=== PATIENT | female | born 1985 | race Caucasian/White ===

== ENCOUNTER → 2019-10-01 16:43 | Outpatient (CLI) | payer OTHER, SELFPAY ==
--- NOTE | ~2019-10-01 | US_ITS ---
EXAMINATION: US OB >= 14 weeks Fetus DATE: 10/01/2019 17:45 INDICATION: survey TECHNIQUE: Multiple obstetric sonographic images performed. FINDINGS: Comparison ultrasound dated 07/13/2019 There is a single living fetus in vertex presentation. The placenta is anterior without placenta pre via. Placenta measures 2.2 cm to the cervix. Amniotic fluid volume is subjectively normal. cardiac activity and movement is noted with a heart rate of 146 beats per minute. The following anatomy was identified as normal: 4 chamber heart 3 vessel cord cord insertion kidneys urinary bladder stomach spine diaphragm ventricles cisterna magna cerebellum The following biometric data were obtained: BPD: 44mm corresponds to gestational age 19 weeks 1 days. Head circumference: 161 mm corresponds to gestational age 18 weeks 6 days. Abdominal circumference: 134 mm corresponds to gestational age 18 weeks 6 days. Femur length: 28 mm corresponds to gestational age 18 weeks 5 days. Head circumference to abdominal circumference ratio: 1.19 (normal range for expected gestational age is 1.09-1.26). Estimated weight: 259 grams +/- 39 grams using Hadlock method. IMPRESSION: 1: Single living intrauterine with an estimated gestational age of 18weeks 3days by initial ultrasound measurements, with an EDC of 02/29/2020 in breech presentation. 2. Normal survey. 3: Low-lying anterior placenta measuring 2.2 cm to the cervix. Reviewed, dictated and finalized at location B. ESSION: 1: Single living intrauterine with an estimated gestational age of 18 weeks 3days by initial ultrasound measurements, with an EDC of 02/29/2020 in br eech presentation. 2. Normal survey. 3: Low-lying anterior placenta measuring 2.2 cm to the cervix.
== END ==
PROVIDERS: Visit Provider Nurse Practitioner
DX: O44.42 Low lying placenta NOS or without hemorrhage, second trimester (principal); Z3A.18 18 weeks gestation of pregnancy
CPT/HCPCS: 76805

== ENCOUNTER → 2019-11-02 07:35 | Outpatient (CLI) | payer OTHER, SELFPAY ==
--- NOTE | ~2019-11-02 | US_ITS ---
EXAMINATION: US OB limited EXAM DATE: 11/02/2019 07:59 INDICATION: Low lying placenta. Second trimester. TECHNIQUE: Pelvic obstetrical transabdominal sonogram was performed by a technologist. There are mu ltiple grayscale and Doppler images available for interpretation. Comparison is made to prior examina tion from 10/01/2019. FINDINGS: Placental margin to internal cervical os distance is 5.1 cm. There is a single fetus identi fied in vertex presentation with a heart rate of 147 beats per minute. The placenta is located in the anterior position. There is no sonographic evidence of retroplacental hemorrhage identified. There is subjectively expected amount of amniotic fluid. IMPRESSION: 1. Single fetus in vertex presentation with heart rate 147 beats per minute. 2. Anteriorly located placenta. Reviewed, dictated and finalized at location A.
== END ==
PROVIDERS: PCP Nurse Practitioner Adult Health; Visit Provider Obstetrics & Gynecology Gynecology
DX: O44.10 Complete placenta previa with hemorrhage, unspecified trimester (principal); Z3A.00 Weeks of gestation of pregnancy not specified
CPT/HCPCS: 76815

== ENCOUNTER 2020-02-21 18:53 | Inpatient (IN) | payer OTHER, SELFPAY ==
[2020-02-21] VITALS (20 sets, daily range): BP systolic 102–140; BP diastolic 50–87; PULSE 82–103; TEMP 36.8–37.1; BMI 35.8
--- NOTE | 2020-02-21 18:53 | LDADM ---
This patient, Flor Nath, was admitted to Labor/Delivery/Recovery 106 on 02/21/20 at 18:53. Plans for labor, pain management and were discussed with patient. Patient/family oriented to hospital policies and general routines including ID bracelet, bed and alarms, visiting hours, pain management, procedures, bathroom and other care routines, personal items, smoking policy, room service/diet and guest tray routines, infant security routines, and visiting hours. Patient/Family are encouraged to report perceived risks to care and to ask questions if they do not understand what they are told or what they should do. See OBIX for further documentation.
[2020-02-21 19:58] LABS: Basophils Percent Auto 0.5 % (0.2-1.2); Eosinophils Absolute Auto 0.1 K/mm3 (0-0.3); Eosinophils Percent Auto 1.6 % (0-4.4); Hematocrit 38.4 % (37.0-47.0); Hemoglobin 13.2 g/dL (12.0-15.0); Immature Granulocyte Absolute 0.04 K/mm3 (0.00-0.031); Immature Granulocyte Percent A 0.5 % (0-0.5); Immature Platelet Fraction Pct 11.9 % (0.9-11.2); Lymphocytes Percent Auto 24.7 % (18.3-44.2); Mean Corpuscular HGB Conc 34.4 g/dl (32-36); Mean Corpuscular Hemoglobin 30.1 pg (26-34); Mean Corpuscular Volume 87.7 fl (80-100); Mean Platelet Volume 12.2 fl (7.4-10.4); Monocytes Absolute Auto 0.6 K/mm3 (0.1-0.6); Monocytes Percent Auto 7.3 % (2.6-8.5); Neutrophils Percent Auto 65.4 % (45.5-73.1); Platelet Count Result 193 k/mm3 (150-375); Red Blood Count 4.38 M/mm3 (4.2-5.4); Red Cell Distribution Width 13.8 % (11.5-14.5); White Blood Count 7.7 K/mm3 (4.5-10.0)
[2020-02-21] MEDS: DINOPROSTONE 10 MG VAG INSERT VAGINAL (20:02)
--- NOTE | 2020-02-21 20:41 | P.PNAN_ITS ---
Anes - Eval Pre Procedure Procedure: Labor epidural Date/Time: 02/21/20 20:41 Surgeon: Lindsay Preop Diagnosis: Abd pain with contractions Pre Op Diagnosis: Induction of Labor Patient Data Age: 34 Gender: F Height: Weight: Last Vital Signs Pulse 94 02/21/20 20:30 BP 125/73 02/21/20 20:30 Allergies Allergy/AdvReac Type Severity Reaction Status Date / Time No Known Allergies Allergy Verified 01/27/20 13:35 Home Medications Medication Instructions Recorded Confirmed Type PNV cmb#95-ferrous fumarate-FA 1 tablet PO DAILY 01/27/20 01/27/20 History [] ergocalciferol (vitamin D2) 1,250 mcg PO WEEKLY 01/27/20 01/27/20 History [Vitamin D2] levothyroxine [Synthroid] 25 mcg PO DAILY 01/27/20 01/27/20 History Laboratory Tests 02/21/20 02/21/20 19:43 19:43 WBC 7.7 K/mm3 K/mm3 (4.5-10.0) RBC 4.38 M/mm3 M/mm3 (4.2-5.4) Hgb 13.2 g/dL g/dL (12.0-15.0) Hct 38.4 % % (37.0-47.0) MCV 87.7 fl fl (80-100) MCH 30.1 pg pg (26-34) MCHC 34.4 g/dl g/dl (32-36) RDW 13.8 % % (11.5-14.5) Plt Count 193 k/mm3 k/mm3 (150-375) MPV 12.2 fl H fl (7.4-10.4) Immature Gran % (Auto) 0.5 % % (0-0.5) Neut % (Auto) 65.4 % % (45.5-73.1) Lymph % (Auto) 24.7 % % (18.3-44.2) [place] % (Auto) 7.3 % % (2.6-8.5) Eos % (Auto) 1.6 % % (0-4.4) Baso % (Auto) 0.5 % % (0.2-1.2) Lymph # (Auto) 1.90 K/mm3 K/mm3 (0.9-3.2) [place] # (Auto) 0.6 K/mm3 K/mm3 (0.1-0.6) Eos # (Auto) 0.1 K/mm3 K/mm3 (0-0.3) Baso # (Auto) 0.0 K/mm3 K/mm3 (0.0-0.1) Abs Immat Gran (auto) 0.04 K/mm3 H K/mm3 (0.00-0.031) Absolute Neuts (auto) 5.0 K/mm3 K/mm3 (1.3-6.7) Absolute Nucleated RBC 0.0 K/mm3 K/mm3 (0.0-0.012) Nucleated RBC % 0.0 % % (0.0-0.2) % Immature Plt Fraction 11.9 % H % (0.9-11.2) RPR Pending Patient hx anesthesia problems: none Family hx anesthesia problems: none PMFSH Past Medical History Medical History (Updated 02/21/20 @ 20:42 by Dereck Cheek CRNA) Hypothyroidism Family History Family History Father Diabetes mellitus Hypertension Grandparent Family history of cardiovascular disease Cancer Cerebrovascular accident Social History Social History Smoking status: Never smoker Alcohol intake: current Substance use: never Spiritual care concerns: No Exam Day of Procedure 02/21/20 20:41 Patient weight: overweight Neurological: alert and oriented
[2020-02-22] VITALS (36 sets, daily range): BP systolic 97–135; BP diastolic 46–89; PULSE 81–109; TEMP 36.8–37.7
[2020-02-22] MEDS: AMPICILLIN 2 GM/NS 100 ML 2 GM/100 ML BAG IVPB (00:23)
[2020-02-22] MEDS: LACTATED RINGERS 1,000 ML 125 ML IV CONT ×3 (00:24→17:19)
[2020-02-22] MEDS: AMPICILLIN 1 GM/NS 50 ML 1 GM/50 ML BAG IVPB ×5 (04:24→21:02)
--- NOTE | 2020-02-22 10:04 | WPDOBADMIT ---
Obstetrics - Admit Note Admission Note: record reviewed. No pertinent additions to the history and/or any subsequent changes in the physical findings that are not consistent with the expected course of the were found. Additions to the history and/or subsequent changes in the physical findings follow. Here for MIL. Cervadil last pm. Still closed but softer. Plan Pitocin. FHTs reactive.
[2020-02-22] MEDS: OXYTOCIN 30 UNITS/NS 500 ML 30 UNITS/500 ML BAG IV CONT (10:21)
[2020-02-23] VITALS (205 sets, daily range): BP systolic 88–195; BP diastolic 40–165; PULSE 62–133; RESP 18–26; TEMP 36.1–37.8; O2SAT 88–100
[2020-02-23] MEDS: AMPICILLIN 1 GM/NS 50 ML 1 GM/50 ML BAG IVPB ×4 (00:29→12:41)
[2020-02-23] MEDS: LACTATED RINGERS 1,000 ML 125 ML IV CONT ×3 (01:10→05:10)
--- NOTE | 2020-02-23 09:35 | P.PNOB_ITS ---
OB - PN: Subj Subjective Date/time seen: 02/23/20 09:35 Patient only 2.5 cm last pm so rested and ate dinner then restarted pitocin. Now last check at 7 am 7.5 cm. SROM in the night with clear fluid. RN to check p atient now. OB - PN: Obj Data Labs CBC & Chem 7: 02/21/20 19:43 OB - PN A/P Time Spent With Patient Time: Total time spent is greater than 50% in coordination of care (as documented) at patient's floor/unit and/or counseling patient:
[2020-02-23] MEDS: ACETAMINOPHEN 500 MG TABLET 1000 MG PO (15:56)
--- NOTE | 2020-02-23 16:46 | PM.IMHP ---
H&P: HPI History of Present Illness Chief complaint: Induction of Labor Narrative: Flor Nath is a 34 G1 year old female at 39 3/7 wks here for MIL. Initially closed cervix and given cervadil. Slow progress to complete and pushing. Had a 1 1/2 hour pushing effort in multiple positions and then rested and now has pushed an additional 1 1/2 hours. Minimal descent and still at -2 station. Plan to proceed with primary csection for failure to descend. uncomplicated. labs: O+; Rubella immune; RPR -; HBSAg -; HIV - PMFSH Past Medical History Medical History (Updated 02/23/20 @ 16:51 by Marlyn Montoya MD) Hypothyroidism Family History Family History Father Diabetes mellitus Hypertension Grandparent Family history of cardiovascular disease Cancer Cerebrovascular accident Social History Social History Smoking status: Never smoker Alcohol intake: current Substance use: never Spiritual care concerns: No Meds Home Medications and Allergies Home Medications Medication Instructions Recorded Confirmed Type PNV cmb#95-ferrous fumarate-FA 1 tablet PO DAILY 01/27/20 01/27/20 History [] ergocalciferol (vitamin D2) 1,250 mcg PO WEEKLY 01/27/20 01/27/20 History [Vitamin D2] levothyroxine [Synthroid] 25 mcg PO DAILY 01/27/20 01/27/20 History Allergies Allergy/AdvReac Type Severity Reaction Status Date / Time No Known Allergies Allergy Verified 01/27/20 13:35 Vital Signs Vital Signs - 24 hr 02/22/20 17:00 02/22/20 17:30 02/22/20 17:40 Temperature 98.2 F Pulse Rate 92 90 Respiratory Rate Blood Pressure 120/79 123/79 Pulse Oximetry 02/22/20 18:00 02/22/20 18:30 02/22/20 20:15 Temperature Pulse Rate 97 89 97 Respiratory Rate Blood Pressure 132/84 130/80 127/80 Pulse Oximetry 02/22/20 20:16 02/22/20 20:30 02/22/20 20:45 Temperature Pulse Rate 98 97 95 Respiratory Rate Blood Pressure 123/76 126/81 127/76 Pulse Oximetry 02/22/20 21:00 02/22/20 21:15 02/22/20 21:30 Temperature Pulse Rate 105 H 95 95 Respiratory Rate Blood Pressure 126/89 116/82 119/78 Pulse Oximetry 02/22/20 22:00 02/22/20 22:15 02/22/20 22:30 Temperature Pulse Rate 86 84 90 Respiratory Rate Blood Pressure 114/61 103/54 L 107/53 L Pulse Oximetry 02/22/20 22:36 02/22/20 22:45 02/22/20 23:01 Temperature 98.3 F Pulse Rate 86 90 Respiratory Rate Blood Pressure 97/46 L 113/67 Pulse Oximetry 02/22/20 23:45 02/23/20 00:00 02/23/20 00:15 Temperature Pulse Rate 88 91 92 Respiratory Rate Blood Pressure 122/71 120/70 117/64 Pulse Oximetry 02/23/20 00:30 02/23/20 00:31 02/23/20 00:45 Temperature 99.4 F Pulse Rate 92 96 Respiratory Rate Blood Pressure 109/65 109/63 Pulse Oximetry 02/23/20 01:00 02/23/20 01:15 02/23/20 01:45 Temperature Pulse Rate 95 85 86 Respiratory Rate Blood Pressure 111/60 115/68 112/51 L Pulse Oximetry 02/23/20 02:00 02/23/20 02:15 02/23/20 02:25 Temperature Pulse Rate 82 90 Respiratory Rate Blood Pressure 114/57 L 127/78 Pulse Oximetry 99 02/23/20 02:29 02/23/20 02:30 02/23/20 02:31 Temperature Pulse Rate 103 H 98 Respiratory Rate Blood Pressure 129/87 131/85 Pulse Oximetry 98 02/23/20 02:33 02/23/20 02:35 02/23/20 02:36 Temperature Pulse Rate 84 96 Respiratory Rate Blood Pressure 140/81 135/84 Pulse Oximetry 98 02/23/20 02:39 02/23/20 02:40 02/23/20 02:42 Temperature Pulse Rate 100 76 Respiratory Rate Blood Pressure 130/82 127/77 Pulse Oximetry 97 02/23/20 02:45 02/23/20 02:48 02/23/20 02:50 Temperature Pulse Rate 74 82 Respiratory Rate Blood Pressure 121/66 118/69 Pulse Oximetry 98 98 02/23/20 02:51 02/23/20 02:54 02/23/20 02:55 Temperature Pulse Rate 84 82 Respiratory
[2020-02-23] MEDS: KETOROLAC 30 MG/ML VIAL (*BKC) IV PUSH (17:16)
--- NOTE | 2020-02-23 17:32 | PM.OP ---
Procedure Note - Brief Procedure Note - Brief Date of procedure: 02/23/20 Pre-op diagnosis: Induction of Labor failure to descend Post-op diagnosis: same Procedure performed: primary LTCS Anesthesia: epidural Surgeon: Marlyn Montoya MD Estimated blood loss (mL): 130 Drains: Yes (nunez) Packing: No Pathology: yes (placenta) Complications: No immediate complications Condition: stable Disposition: PACU Findings: female in OP position; cord loose around body x 1; normal appearing tubes, ovaries, and uterus; 9/9; weight 8#3oz
--- NOTE | 2020-02-23 17:35 | PM.DS ---
DS: Admitting Diagnosis Admitting Diagnosis Admitting Diagnosis: 39 weeks gestation of DS: Discharge Diagnosis Discharge Diagnosis (1) Failure of descent in labor, delivered, current hospitalization: Code(s): O62.2 - Other uterine inertia Status: Acute (2) 39 weeks gestation of : Code(s): Z3A.39 - 39 weeks gestation of Status: Acute (3) delivery delivered: Code(s): O82 - Encounter for delivery without indication Status: Acute DS: Summary Hospital Course Reason for hospitalization: post op care Status at Discharge Functional status at discharge: independent ambulation Overall status at discharge: patient is progressing back to baseline Time Spent with Patient Time attestation: Total time spent providing and/or coordinating discharge services: Discharge Plan Discharge Attending physician on discharge: Marlyn Montoya Discharging Clinician: Marlyn Montoya Anticipated Discharge Date/Time: 02/26/20 17:36 Patient Disposition: Home, Self-Care Activity: may shower, may drive after 2 weeks and pelvic rest Diet: regular Patient Instructions: Antibiotic Form Stand Alone Forms: General Discharge Information Follow-up/Referrals: Marlyn Montoya MD [Physician] - 1 Week Discharge Medications: Continued PNV cmb#95-ferrous fumarate-FA [] 28 mg iron- 800 mcg Tablet 1 tablet PO DAILY RF: 0 levothyroxine [Synthroid] 25 mcg Tablet 25 mcg PO DAILY RF: 0 ergocalciferol (vitamin D2) [Vitamin D2] 1,250 mcg (50,000 unit) Capsule 1,250 mcg PO WEEKLY RF: 0 Date of admission: 02/21/20 18:53 Primary Care Provider: NhungAlla Admitting Provider: Marlyn Montoya Attending physician on admission: Marlyn Montoya Condition: Stable
--- NOTE | 2020-02-23 17:38 | PM.OBDSVD ---
DS: Admitting Diagnosis Admitting Diagnosis Admitting Diagnosis: 39 weeks gestation of DS: Discharge Diagnosis Discharge Diagnosis (1) delivery delivered: Code(s): O82 - Encounter for delivery without indication Status: Acute (2) Failure of descent in labor, delivered, current hospitalization: Code(s): O62.2 - Other uterine inertia Status: Acute (3) 39 weeks gestation of : Code(s): Z3A.39 - 39 weeks gestation of Status: Acute OB - DS: Summary OB Procedures : Ultrasound OB Procedures Intrapartum: low cervical, transverse OB Procedures: : None Peripartum Data Infant Delivery Method: Section Procedures: Procedures Operation Date: 02/23/20 17:00 <No data on this case meets the specified criteria> complications: none Status at Discharge Functional status at discharge: independent ambulation Overall status at discharge: patient is progressing back to baseline Time Spent with Patient Time attestation: Total time spent providing and/or coordinating discharge services: Discharge Plan Discharge Attending physician on discharge: Marlyn Montoya Discharging Clinician: Marlyn Montoya Anticipated Discharge Date/Time: 02/25/20 07:39 Patient Disposition: Home, Self-Care Activity: may shower, may drive after 2 weeks and pelvic rest Diet: regular Patient Instructions: Antibiotic Form Stand Alone Forms: General Discharge Information Follow-up/Referrals: Marlyn Montoya MD [Physician] - 1 Week Discharge Medications: Continued PNV cmb#95-ferrous fumarate-FA [] 28 mg iron- 800 mcg Tablet 1 tablet PO DAILY RF: 0 levothyroxine [Synthroid] 25 mcg Tablet 25 mcg PO DAILY RF: 0 ergocalciferol (vitamin D2) [Vitamin D2] 1,250 mcg (50,000 unit) Capsule 1,250 mcg PO WEEKLY RF: 0 Date of admission: 02/21/20 18:53 Primary Care Provider: Leonie*Alla Admitting Provider: Marlyn Montoya Attending physician on admission: Marlyn Montoya Condition: Stable Care Plan Goals: Plans condoms for control
[2020-02-23] MEDS: OXYTOCIN 30 UNITS/NS 500 ML 30 UNITS/500 ML BAG 125 UNITS IV CONT (19:00)
--- NOTE | 2020-02-23 20:32 | OP_ITS ---
DATE OF PROCEDURE: 02/23/2020 PREOPERATIVE DIAGNOSIS: Intrauterine at 39 weeks, failure to descend. POSTOPERATIVE DIAGNOSIS: Intrauterine at 39 weeks, failure to descend. PROCEDURE: Primary low-transverse section. ANESTHESIA: Epidural. FINDINGS: Female in the occiput-posterior position, body cord x1 is delivered through. Normal-appearing tubes, ovaries, and uterus. Apgars scores 9 and 9, weight 8 pounds 3 ounce. ESTIMATED BLOOD LOSS: 130 cc. PATHOLOGY: Placenta. DESCRIPTION OF PROCEDURE: The patient was taken to the operating room, placed under previously placed epidural anesthesia. She was prepped and draped in usual sterile fashion. Once the anesthesia was deemed adequate, she was prepped and draped. A Pfannenstiel skin incision was made with a scalpel and carried down to the underlying layer of fascia. Bleeding vessels in the subcutaneous tissue are cauterized for hemostasis. The vaginal incision was extended laterally using Lala scissors. [facility] was used to tent the fascia, which was then dissected off using sharp and blunt dissection. The rectus muscles were in the midline. The peritoneum was tented, entered with Metzenbaum, and extended laterally using blunt traction. The bladder blade was placed. The vesicouterine peritoneum is tented, entered with Metzenbaum's and extended laterally. The bladder flap was created digitally. The bladder blade was replaced. The lower uterine segment was incised in a transverse fashion with a scalpel and extended laterally using blunt traction. Membranes are already ruptured and fluid was noted to still be clear. The 's head was noted to be in the straight OP position. The was brought up into the incision and delivered while the assistant community director applied fundal pressure. The infant was fully delivered, detangled from the cord. The cord was clamped and cut. The is handed to the OB nurse. The placenta was removed using manual traction. The cord did partially avulsed during this process. The uterus was cleared of all clots and debris and exteriorized. The uterine incision was closed using 0 Monocryl in the running locked fashion. One additional [id number] suture was required on the lower uterine segment below the incision on the left, proximally 1 cm below due to a bleeding vessel. The hemostasis was then noted to be excellent at the incision and at the additional [id number] suture. The 2nd layer of imbricating stitches is placed with 0 Monocryl. The cul-de-sac was irrigated. The uterus was returned to the abdomen. The gutters were irrigated. The incision was again inspected and noted to be hemostatic. The fascia was closed using 0 Vicryl in a running fashion. Subcutaneous tissues were irrigated and made hemostatic using Bovie cautery. Skin was closed using 4-0 Vicryl in a subcuticular fashion. Glue was placed over the incision. Sponge, instrument, needle counts were correct per the OR staff. The patient did receive Ancef prior to skin incision. D I MT: Sergio
--- NOTE | 2020-02-23 21:48 | PC.NURSE ---
02/23/2020 at 2004 Patient transferred to post room # 285 via stretcher. Patient transferred to bed with maxi-air glide without difficutly. Support person present. Oriented to unit, room, information board, rooming in, admission packet and security measures. Patient verbalizes understanding.
[2020-02-23] MEDS: diphenhydrAMINE HCl INJ 50 MG/ML VIAL 25 MG IV PUSH (23:24)
[2020-02-23] MEDS: KCL 20 MEQ/D5/0.45% SOD CHL 1,000 ML 125 ML IV CONT (23:50)
[2020-02-24] VITALS (7 sets, daily range): BP systolic 97–114; BP diastolic 51–72; PULSE 57–72; RESP 18; TEMP 36.1–36.7; O2SAT 97–100
[2020-02-24 05:02] LABS: Basophils Absolute Auto 0.1 K/mm3 (0.0-0.1); Basophils Percent Auto 0.4 % (0.2-1.2); Eosinophils Absolute Auto 0.1 K/mm3 (0-0.3); Eosinophils Percent Auto 0.5 % (0-4.4); Hematocrit 35.3 % (37.0-47.0); Hemoglobin 11.9 g/dL (12.0-15.0); Immature Granulocyte Absolute 0.07 K/mm3 (0.00-0.031); Immature Granulocyte Percent A 0.5 % (0-0.5); Lymphocytes Absolute Auto 1.87 K/mm3 (0.9-3.2); Lymphocytes Percent Auto 14.2 % (18.3-44.2); Mean Corpuscular HGB Conc 33.7 g/dl (32-36); Mean Corpuscular Hemoglobin 29.8 pg (26-34); Mean Corpuscular Volume 88.5 fl (80-100); Mean Platelet Volume 11.3 fl (7.4-10.4); Monocytes Absolute Auto 0.9 K/mm3 (0.1-0.6); Monocytes Percent Auto 6.7 % (2.6-8.5); Neutrophils Absolute Auto 10.2 K/mm3 (1.3-6.7); Neutrophils Percent Auto 77.7 % (45.5-73.1); Platelet Count Result 167 k/mm3 (150-375); Red Blood Count 3.99 M/mm3 (4.2-5.4); Red Cell Distribution Width 13.8 % (11.5-14.5); White Blood Count 13.2 K/mm3 (4.5-10.0)
--- NOTE | 2020-02-24 07:30 | PC.NURSE ---
PT introductions made and plan of care discussed per post op c section, pain management, breast feeding, daily care activities. PT verbalized understanding of such care.
--- NOTE | 2020-02-24 08:23 | P.PNOB_ITS ---
OB - PN: Subj Subjective Date/time seen: 02/24/20 08:23 Patient comments: no complaints and pain well controlled baby status: doing well OB - PN: Obj Data Labs CBC & Chem 7: 02/24/20 04:52 Labs: Laboratory Results - last 24 hr 02/24/20 04:52 WBC 13.2 H RBC 3.99 L Hgb 11.9 L Hct 35.3 L MCV 88.5 MCH 29.8 MCHC 33.7 RDW 13.8 Plt Count 167 MPV 11.3 H Immature Gran % (Auto) 0.5 Neut % (Auto) 77.7 H Lymph % (Auto) 14.2 L [place] % (Auto) 6.7 Eos % (Auto) 0.5 Baso % (Auto) 0.4 Lymph # (Auto) 1.87 [place] # (Auto) 0.9 H Eos # (Auto) 0.1 Baso # (Auto) 0.1 Abs Immat Gran (auto) 0.07 H Absolute Neuts (auto) 10.2 H Absolute Nucleated RBC 0.0 Nucleated RBC % 0.0 OB - PN A/P Plan day: 1 Plan: routine care Time Spent With Patient Time: Total time spent is greater than 50% in coordination of care (as documented) at patient's floor/unit and/or counseling patient: Exam GI: Other: inc c/d/i : Bimanual exam- vagina & uterus: other (Uterus firm, nt @U)
[2020-02-24] MEDS: SIMETHICONE 80 MG TAB.CHEW PO ×4 (08:50→22:17)
[2020-02-24] MEDS: DOCUSATE SODIUM 100 MG CAPSULE PO ×2 (08:51→15:58)
[2020-02-24] MEDS: IBUPROFEN 600 MG TABLET PO ×3 (08:51→22:17)
[2020-02-24] MEDS: MULTIVIT/MIN/PREN/FOL AC/IRON TABLET 1 TAB PO (08:51)
[2020-02-24] MEDS: ACETAMINOPHEN 325 MG TABLET 650 MG PO ×4 (08:51→22:17)
[2020-02-24 10:06] LABS: Rapid Plasma Reagin Non-Reactive (NonReactive)
--- NOTE | 2020-02-24 10:57 | WPDANLDNPN2 ---
Anes-Prog Note L&D-Neuraxial Date/Time: 02/24/20 10:57 Neuraxial medications: intrathecal PF morphine Opiod-related complaints: none Patient feedback: Patient satisfied with post-operative pain management.
--- NOTE | 2020-02-24 10:57 | WPDANLDPN2 ---
Anes-Prog Note L&D Date/Time: 02/24/20 10:57 Comfortable throughout: labor, delivery and section Neuraxial method: epidural Epidural/Spinal procedure site: clean & non-tender Neuro status: Neuro function grossly intact. Cardiovascular status: normal Respiratory status: normal Airway patency: baseline Mental status: baseline Post-Op hydration status: normal Vital Signs: Last Vital Signs Temp 36.5 C 02/24/20 07:45 Pulse 72 02/24/20 07:45 Resp 18 02/24/20 07:45 BP 102/51 L 02/24/20 07:45 Pulse Ox 97 02/24/20 07:45 I/O: Intake & Output 02/23/20 02/24/20 02/24/20 23:59 07:59 15:59 Intake Total 500 100 Output Total 282 600 725 Balance 218 -359 -092 Post-procedural complaints: none Patient feedback: Patient satisfied with anesthetic care.
--- NOTE | 2020-02-24 13:05 | PC.NURSE ---
Upon entering mother has to breast. Mother is able to independently latch infant with appropriate positioning/alignment. was latched correctly. Infant nursed eagerly, with steady draws and frequent swallowing noted. Reviewed signs of a correct latch, effective nursing and suck swallow ratio. was able to maintain latch without discomfort to mother. Reviewed positioning/alignment in cross cradle, holding breast in U hold and guided asymmetrical latch on. Discussed rational of each. Nipple care reviewed. Mother switched to cradle positioning, was able to maintain latch. Instructed mother to call out for RN assistance if she is unable to latch for feeding or she has discomfort with nursing. Instructed feeding should be initiated three hours from start of last feeding or if feeding cues are noted before. Mother voiced understanding of information shared. Reviewed infant feeding cues, frequencies, duration of feedings, feeding elimination flow sheet, and signs of adequate intake.
[2020-02-25] MEDS: LEVOTHYROXINE SODIUM 25 MCG TABLET PO (06:00)
[2020-02-25] MEDS: DOCUSATE SODIUM 100 MG CAPSULE PO (07:16)
[2020-02-25] MEDS: SIMETHICONE 80 MG TAB.CHEW PO (07:16)
[2020-02-25] MEDS: MULTIVIT/MIN/PREN/FOL AC/IRON TABLET 1 TAB PO (07:16)
[2020-02-25] MEDS: ACETAMINOPHEN 325 MG TABLET 650 MG PO (07:16)
[2020-02-25] MEDS: IBUPROFEN 600 MG TABLET PO (07:17)
--- NOTE | 2020-02-25 07:38 | PM.OBPNVD ---
OB - PN: Subj Subjective Date/time seen: 02/25/20 07:38 Patient comments: no complaints and pain well controlled baby status: doing well and nursing well OB - PN: Obj Data Labs CBC & Chem 7: 02/24/20 04:52 Labs: Laboratory Results - last 24 hr 02/21/20 19:43 RPR Non-reactive OB - PN A/P Plan day: 2 Plan: routine care and discharge home Comments: Plans condoms for bc Time Spent With Patient Time: Total time spent is greater than 50% in coordination of care (as documented) at patient's floor/unit and/or counseling patient: Exam GI: Other: inc c/d/i : Bimanual exam- vagina & uterus: other (Uterus firm, nt @U)
[2020-02-25 07:50] VITALS: BP 117/63; PULSE 71; RESP 16; TEMP 37; O2SAT 97
--- NOTE | 2020-02-25 09:15 | PC.NURSE ---
Mother called out for observation of latch. Mother is able to independently latch with appropriate positioning/alignment. She denies any nipple discomfort, is feeding as required and waking to feed if needed. Infant has had at least 8 effective feedings in the past 24 hours, and is currently meeting outcomes for weight, output, jaundice and feeding frequencies. nurses vigorously with long draws and freq swallowing noted. Mother states she feels confident to continue effective at home. Reviewed transition to breast milk, signs of adequate intake, and engorgement/relief. Instructed to call ICP if intake/output less than required. Reviewed regular medications mother is taking. Information provided per Rebecca. Reviewed community resources on the [facility] website and in the Mom/Baby guide. Information on outpatient services provided. Mother has no further questions at this time.
[2020-02-27 10:07] VITALS: PULSE 71; RESP 18; TEMP 36.6; O2SAT 99
[2020-02-27 10:25] VITALS: BP 130/84; PULSE 71; RESP 18; TEMP 36.6; O2SAT 99
== END 2020-02-25 12:29 | disposition home or self-care (01) | DRG 788 ==
LOC: ANHLDR 02-23 17:37 → ANHOB2 02-23 21:01
PROVIDERS: Admitting Provider Obstetrics & Gynecology Gynecology; PCP Nurse Practitioner Adult Health; Visit Provider Obstetrics & Gynecology Gynecology
PROC: 10D00Z1 Extraction of Products of Conception, Low, Open Approach (ICD-10-PCS; CPT 59514; principal; 2020-02-23 17:00)
DX: O32.4XX0 Maternal care for high head at term, not applicable or unspecified (principal); O62.2 Other uterine inertia; O69.2XX0 Labor and delivery complicated by other cord entanglement, with compression, not applicable or unspecified; O99.824 Streptococcus B carrier state complicating childbirth; O76 Abnormality in fetal heart rate and rhythm complicating labor and delivery; Z3A.39 39 weeks gestation of pregnancy; Z37.0 Single live birth
CPT/HCPCS: 36415; 85025; 85055; 86592; 86850; 86900; 86901; 88307; A9270; J0290; J0690; J1200; J1885; J2274; J2405; J2590; J2795; J3480; J7120

== ENCOUNTER → 2020-08-29 10:16 | Outpatient (CLI) | payer OTHER, SELFPAY ==
--- NOTE | ~2020-08-29 | US_ITS ---
US thyroid DATE: 08/29/2020 10:30 INDICATION: Goiter TECHNIQUE: Real-time and color flow imaging of the thyroid gland COMPARISON: 08/19/2019 thyroid ultrasound FINDINGS: The right lobe measures 4.7 x 1.6 x 1.3 cm. The left lobe measures 4.8 x 1.4 x 1.7 cm. The isthmus measures up to 5 mm AP dimension. No thyroid mass lesion is evident. IMPRESSION: No thyroid mass lesion or significant change since 08/02/2019 Reviewed, dictated and finalized at [facility]. Reviewed, dictated and finalized at location A. ERN SETTER
== END ==
PROVIDERS: Visit Provider Internal Medicine Endocrinology, Diabetes & Metabolism
DX: E04.9 Nontoxic goiter, unspecified (principal)
CPT/HCPCS: 76536

== ENCOUNTER 2021-03-05 11:50 | Emergency (ER) | payer OTHER, SELFPAY ==
[2021-03-05 12:18] VITALS: BP 141/87; PULSE 90; RESP 16; TEMP 36.6; O2SAT 100
--- NOTE | 2021-03-05 12:43 | ED.URI ---
HPI - URI/Sore Throat General Chief Complaint: Upper Respiratory Infection Stated Complaint: sore throat/earache Time Seen by Provider: 03/05/21 12:25 Source: patient, RN notes reviewed and old records reviewed Mode of arrival: ambulatory Limitations: no limitations History of Present Illness HPI Narrative: 35-year-old female who presents to [facility] with complaints of sore throat and earache on the right side for the past 2 days. Patient states feels like something stuck in her throat does have a history of frequent strep when younger. Patient reports was treated 1 month ago with Augmentin for sinus infection completed that antibiotic a little over 2 weeks ago. Denies difficulty swallowing some painful swallowing stated. Denies any shortness of breath, no wheezing or tachypnea, SAO2 100% on room air MD elicited complaint: sore throat and other (ears) Related Data Home Medications Medication Instructions Recorded Confirmed PNV cmb#95-ferrous fumarate-FA 1 tablet PO DAILY 01/27/20 01/27/20 [] ergocalciferol (vitamin D2) 1,250 mcg PO WEEKLY 01/27/20 01/27/20 [Vitamin D2] levothyroxine [Synthroid] 25 mcg PO DAILY 01/27/20 01/27/20 Allergies Allergy/AdvReac Type Severity Reaction Status Date / Time No Known Allergies Allergy Verified 01/27/20 13:35 Review of Systems Review of Systems: CONSTITUTIONAL: Denies fever, chills, or sweats. EYES: Denies visual changes, redness, or discharge. ENT: Denies rhinorrhea, congestion,positive for sore throat, right otalgia. CARDIOVASCULAR: Denies chest pain, palpitations, or edema. RESPIRATORY: Denies cough or dyspnea. GASTROINTESTINAL: Denies abdominal pain, nausea, vomiting, or diarrhea. GENITOURINARY: Denies dysuria or hematuria. SKIN: Denies rash or itching. MUSCULOSKELETAL: Denies back pain, joint pain, or myalgia. NEUROLOGIC: Denies headache, numbness, or weakness. PSYCHIATRIC: Denies anxiety or depression. All systems reviewed & are unremarkable except as noted in HPI and below PMFSH Past Medical History Medical History (Updated 03/07/21 @ 10:49 by Brooklyn Guillory NP) Fracture of left leg Graves disease Hypothyroidism Surgical History Surgical History (Updated 08/08/21 @ 10:49 by Brooklyn Guillory NP) Previous section Family History Family History Father Diabetes mellitus Hypertension Grandparent Family history of cardiovascular disease Cancer Cerebrovascular accident Social History Social History (Updated 03/07/21 @ 10:48 by Brooklyn Guillory NP) Smoking status: Never smoker Alcohol intake: current Substance use: never Living arrangements: with family Gender identity (if verbalized by the patient): Female Spiritual care concerns: No Comments At time of signature, agree with nursing past medical, surgical, social and family history. There is no relevant family history pertinent to the presenting complaint Exam Narrative: GENERAL: Well-appearing, well-nourished, and in no acute distress. HEAD: Normocephalic, atraumatic. EYES: PERRLA and EOMI. ENT: Nares clear, no rhinorrhea or epistaxis. Mucous membranes moist.TM's normal with good light reflex, tight tonsil enlarged red with white lesions, throat red, with no acute size to left tonsil but red, patient voices painful swallowing but denies feelings of inability to swallow or any shortness of breath. NECK: Supple.right sided lymphadenopathy of neck tonsillar region CHEST: Clear to auscultation. No respiratory distress.SAO2 100% on room air HEART: Regular rate and rhythm. No murmur heard. Normal peripheral pulses. ABDOMEN: Soft, nontender, nondistended, normal active bowel sounds. EXTREMITIES: Normal range of motion. No edema. SKIN: Warm, dry, no rash. NEURO: No focal deficits. Alert and oriented x3. Course Vital Signs Vital signs: Vital Signs Temperature 36.6 C 03/05/21 12:18 Pulse
== END 2021-03-05 13:15 | disposition home or self-care (01) ==
PROVIDERS: Emergency Provider Registered Nurse; PCP Nurse Practitioner Adult Health
DX: J03.90 Acute tonsillitis, unspecified (principal); E05.00 Thyrotoxicosis with diffuse goiter without thyrotoxic crisis or storm; E03.9 Hypothyroidism, unspecified
CPT/HCPCS: 87081; 87880; 99213; G0463

== ENCOUNTER → 2021-09-04 09:09 | Outpatient (CLI) | payer OTHER, SELFPAY ==
--- NOTE | ~2021-09-04 | US_ITS ---
EXAMINATION: US OB /maternal detail DATE: 09/04/2021 09:37 INDICATION: survey TECHNIQUE: Multiple obstetric sonographic images performed. FINDINGS: No prior studies for comparison. There is a single living fetus in variable presentation. The placenta is posterior without placenta previa measuring 5.7 cm to the cervix. Amniotic fluid volume is normal. cardiac activity and movement is noted with a heart rate of 156 beats per minute. The following anatomy was identified as normal: 3 vessel cord cord insertion kidneys urinary bladder stomach spine diaphragm ventricles cisterna magna cerebellum 4 chamber heart and ventricular outflow tracts are not well visualized. Recommend attention to these areas on follow-up examination. The following biometric data were obtained: BPD: 41mm corresponds to gestational age 18 weeks 4 days. Head circumference: 154 mm corresponds to gestational age 18 weeks 3 days. Abdominal circumference: 138 mm corresponds to gestational age 19 weeks 2 days. Femur length: 29 mm corresponds to gestational age 18 weeks 6 days. Head circumference to abdominal circumference ratio: 1.11 (normal range for expected gestational age is 1.09-1.26). Estimated weight: 266 grams +/- 40 grams using Hadlock method. IMPRESSION: 1: Single living intrauterine with an estimated gestational age of 18weeks 6days by current ultrasound measurements, with an EDC of 01/30/2022 in variable presentation. 2. survey limited for evaluation of four-chamber heart and outflow tracts. Otherwise, unremark able survey. Reviewed, dictated and finalized at location A. EXAMINER IMPRESSION: 1: Single living intrauterine with an estimated gestational age of 18 weeks 6days by current ultrasound measurements, with an EDC of 01/30/2022 in va riable presentation. 2. survey limited for evaluation of four-chamber heart and outflow tract s. Otherwise, unremarkable survey.
== END ==
PROVIDERS: Visit Provider Obstetrics & Gynecology Gynecology
DX: Z34.92 Encounter for supervision of normal pregnancy, unspecified, second trimester (principal); Z3A.18 18 weeks gestation of pregnancy
CPT/HCPCS: 76805

== ENCOUNTER → 2021-10-09 08:46 | Outpatient (CLI) | payer OTHER, SELFPAY ==
--- NOTE | ~2021-10-09 | US_ITS ---
EXAMINATION: US OB follow up DATE: 10/09/2021 09:14 INDICATION: Incomplete anatomic survey. Second trimester. TECHNIQUE: Real-time ultrasound of the pelvis was performed. COMPARISON: Ultrasound 09/04/2021 FINDINGS: There is a single living fetus in variable presentation. The placenta is posterior, 8.1 cm from the cervix. heart rate is 148 beats per minute (bpm). The amniotic fluid volume is subjectively nor mal. The heart images are normal. IMPRESSION: 1. Single living fetus in variable presentation. 2. Normal heart images. Reviewed, dictated and finalized at location A. OR DIRECTOR INSIGHT
== END ==
PROVIDERS: Visit Provider Obstetrics & Gynecology Gynecology
DX: Z36.2 Encounter for other antenatal screening follow-up (principal)
CPT/HCPCS: 76816

== ENCOUNTER 2021-12-28 15:42 | Outpatient (RCR) | payer OTHER, SELFPAY | END 2022-02-05 10:03 | disposition home or self-care (01) | LOC: ANHOBOP 15:42 | PROVIDERS: PCP Nurse Practitioner Adult Health; Visit Provider Obstetrics & Gynecology Gynecology | DX: O24.913 Unspecified diabetes mellitus in pregnancy, third trimester (principal); Z3A.35 35 weeks gestation of pregnancy | CPT/HCPCS: 59025 ==

== ENCOUNTER 2022-01-20 15:16 | Outpatient (CLI) | payer OTHER, SELFPAY ==
[2022-01-20 15:40] LABS: Hematocrit 39.8 % (37.0-47.0); Hemoglobin 13.3 g/dL (12.0-15.0); Mean Corpuscular HGB Conc 33.4 g/dl (32-36); Mean Corpuscular Hemoglobin 29.8 pg (26-34); Mean Corpuscular Volume 89.2 fl (80-100); Mean Platelet Volume 10.7 fl (7.4-10.4); Platelet Count Result 186 k/mm3 (150-375); Red Blood Count 4.46 M/mm3 (4.2-5.4); Red Cell Distribution Width 14.3 % (11.5-14.5); White Blood Count 7.3 K/mm3 (4.5-10.0)
[2022-01-21 07:12] LABS: Rapid Plasma Reagin Non-Reactive (NonReactive)
== END 2022-01-20 15:17 | disposition home or self-care (01) ==
PROVIDERS: PCP Nurse Practitioner Adult Health; Visit Provider Obstetrics & Gynecology Gynecology
DX: Z34.93 Encounter for supervision of normal pregnancy, unspecified, third trimester (principal); Z3A.00 Weeks of gestation of pregnancy not specified
CPT/HCPCS: 36415; 85027; 86592; 86850; 86900; 86901

== ENCOUNTER 2022-01-21 04:55 | Inpatient (IN) | payer OTHER, SELFPAY ==
[2022-01-21] VITALS (50 sets, daily range): BP systolic 90–115; BP diastolic 44–76; PULSE 44–125; RESP 10–23; TEMP 36.3–36.6; O2SAT 87–100; BMI 34.3
--- NOTE | 2022-01-21 04:55 | LDADM ---
This patient, Flor Nath, was admitted to Labor/Delivery/Recovery 120 on 01/21/22 at 04:55. Plans for labor, pain management and were discussed with patient. Patient/family oriented to hospital policies and general routines including ID bracelet, bed and alarms, visiting hours, pain management, procedures, bathroom and other care routines, personal items, smoking policy, room service/diet and guest tray routines, infant security routines, and visiting hours. Patient/Family are encouraged to report perceived risks to care and to ask questions if they do not understand what they are told or what they should do. See OBIX for further documentation.
--- OUTSIDE RECORDS SUMMARY | 2022-01-21 04:59 | XMS_ITS ---
:1985 Author Care Team Providers Name Role Phone WILBER GUZMAN [facility]- Primary Care Provider [phone] Allergies Code Code System Name Reaction Severity Status Onset NKDA ? Medications Name Status Start Date Stop Date ? ? amoxicillin 875 mg-potassium clavulanate 125 mg tablet Completed ? 03/01/2021 TAKE 1 TABLET BY MOUTH EVERY 12 HOURS FOR 10 DAYS atenolol 25 mg tablet Completed ? 07/22/2019 cefdinir 300 mg capsule Completed ? 06/14/20 21 ciprofloxacin 500 mg tablet Completed ? 07/01 dexamethasone 4 mg tablet Completed ? 2020 ergocalciferol (vitamin D2) 1,250 mcg (50,000 unit) capsule Acti ve ? Not available TAKE 1 CAPSULE BY MOUTH ONCE A WEEK Humulin N NPH U-100 Insulin (isophane susp) 100 unit/mL subcutan eous Active ? Not available INJECT 4 UNITS SUBCUTANEOUSLY AT BEDTIME insulin syringe U-100 with needle 0.3 mL 31 gauge x 5/16 Active ? Not available USE 1 SYRINGE ONCE DAILY AT BEDTIME methimazole 10 mg tablet Completed ? 019 methimazole 5 mg tablet Completed ? 07/22/20 19 methylprednisolone 4 mg tablets in a dose pack Completed ? 03/01/2021 USE DIRECTED OneTouch Delica Plus Lancet 30 gauge Active ? Not available USE 1 TO CHECK GLUCOSE 4 TIMES DAILY OneTouch Ultra Test strips Active ? Not a vailable USE 1 STRIP TO CHECK GLUCOSE 4 TO 5 TIMES DAILY OneTouch Ultra2 Meter Active ? Not availa ble USE TO CHECK GLUCOSE 4 TIMES DAILY phenazopyridine 200 mg tablet Completed ? Active 07/22/2019 Not available sulfamethoxazole 800 mg-trimethoprim 160 mg Completed ?
--- OUTSIDE RECORDS SUMMARY | 2022-01-21 04:59 | XMS_ITS | Encounter Summary ---
:1985 Author Care Team Providers Name Role Phone Alla Quinn Trinidad- Primary Care Provider [phone] Reason for Visit 5 week Follow up Assessment and Plan 1. Hypothyroidism Continue on synthroid 75 mcg on //Mon/Monday and 100 mcg on Mon/Mon/Monday- repeat TSH and FT4 levels are in ideal range. Continue to monitor the direct FT4 level s and shoot for upper end of normal with goal of TSH of 1 up to 2.5 uIU/mL. ? TSH + free T4, serum ? T3, free, serum or plasma ? thyroid peroxidase (tpo) Ab, serum 2. Gestational diabetes mellitus compli cating failed 1 hour OGTT and unable to tolera te 3 hour OGTT- fasting glucose over range- agree with use of NPH insulin and she was educated on slow titration as necessary to maintain fasting glucose 80-100 m g/dL- continue on 6 units of NPH with sl ow titration as needed. Recommended up to 2000 calories composed of 150 grams of carbs per day - seeing impregnator and drier twice weekly. Discussed carb counting and how to read food labels. Recommended patient to utilize the diabetesK [employer] [place] from the ADA website to help with food preparation as this presents ideal carb content per bernard l so this will make carb counting much e asier for patient. Recommended she incorporate natural ins ulin sensitizers such as pears, apples, cinnamon, ivet and sweet potatoes to help mobilize her endogenous insulin. Spent up to 25 minutes preparing to see the patient (eg, review of tests), obtaining and/or reviewing separately obtained history, performing a medically appropriate examination and evaluation, counseli ng and educating the patient, ordering m edications, tests, along with documenting clinical information in the electronic health record, indep
--- OUTSIDE RECORDS SUMMARY | 2022-01-21 04:59 | XMS_ITS | Encounter Summary ---
:1985 Author Care Team Providers Name Role Phone Alla Quinn Trinidad- Primary Care Provider [phone] Reason for Visit 6 week follow up Assessment and Plan 1. Hypothyroidism in TSH in range but FT4 low due to low pro tein levels which leads to low TBG and further low FT4 - will uptitrate her synthroid to 100 mcg daily every day except Sundays. Will work on increasing protein intake into diet. She was reminded to take her synthroid o n empty stomach with glass of water and wait one hour to eat or have her coffee in morning and up to 4 hours if ever taking any heartburn or reflux medications to help optimize absorption. Repeat thyroid panel in 3-4 weeks and RT C in 4-6 weeks. ? TSH, ultra-sensitive, serum ? T4, free, serum ? Synthroid 100 mcg tablet 2. Hypoproteinemia Due to low oral intake- recommended pat ient try to eat up to 60 grams of protein daily and she can supplement with pea protein/gluten free based protein shakes as she is very busy at work and strugglin g to get consistent food intake in - rec ommended she use protein bars/balls or shakes to supplement to get to goal as her low protein is leading to low TBG and further low FT4 levels. Making gentle titr ation of synthroid upward and dietary re commendations /changes. Spent up to 25 minutes preparing to see the patient (eg, review of tests), obtaining and/or reviewing separately obtained history, performing a medically appropriate examination and evaluation, counseli ng and educating the patient, ordering m edications, tests, along with documenting clinical information in the electronic health record, independently interpreting results and communicating results to the patient. RTC in 6 weeks. Patient was provided a handwritten lab o rder which contains our fax number. If she chooses to go outside of the [place]
[2022-01-21 05:32] LABS: Glucose Point of Care 90 mg/dl (65-105)
[2022-01-21] MEDS: LACTATED RINGERS 1,000 ML 125 ML IV CONT (05:42)
--- NOTE | 2022-01-21 06:45 | P.PNAN_ITS ---
Anes - Eval Pre Procedure Procedure: Operation Date: 01/21/22 07:30 Proposed Procedures p Repeat Section - Marlyn Montoya MD Date/Time: 01/21/22 06:45 Surgeon: ayla Pre Op Diagnosis: C/S Patient Data Age: 36 Gender: F Height: 1.55 m Weight: 82.5 kg Last Vital Signs Temp 36.5 C 01/21/22 06:00 Pulse 76 01/21/22 05:46 BP 115/76 01/21/22 05:46 O2 Del Method Room Air 01/21/22 06:01 Allergies Allergy/AdvReac Type Severity Reaction Status Date / Time No Known Allergies Allergy Verified 01/27/20 13:35 Home Medications Medication Instructions Recorded Confirmed Type ergocalciferol (vitamin D2) 1,250 1,250 mcg PO WEEKLY 01/27/20 01/21/22 History mcg (50,000 unit) capsule (Vitamin D2) levothyroxine 25 mcg tablet 100 mcg PO DAILY 01/27/20 01/21/22 History (Synthroid) vit no.95-ferrous 1 tablet PO DAILY 01/27/20 01/21/22 History fumarate 28 mg-folic acid 800 mcg tablet () insulin NPH isoph U-100 human 100 6 unit subcut HS 12/29/21 01/21/22 History unit/mL (3 mL) subcutaneous pen (Humulin N NPH U-100 Insulin KwikPen) Laboratory Tests 01/21/22 05:28 POC Capillary Glucose 90 mg/dl mg/dl (65-105) Patient hx anesthesia problems: none Family hx anesthesia problems: none Results Review: All pre-operative results and documents have been reviewed as part of the pre- operative evaluation. [facility] Past Medical History Medical History (Updated 03/07/21 @ 10:49 by Brooklyn Guillory NP) Fracture of left leg Graves disease Hypothyroidism Surgical History Surgical History (Updated 03/07/21 @ 10:49 by Brooklyn Guillory NP) Previous section Family History Family History Father Diabetes mellitus Hypertension Grandparent Family history of cardiovascular disease Cancer Cerebrovascular accident Social History Social History (Updated 03/07/21 @ 10:48 by Brooklyn Guillory NP) Smoking status: Never smoker Second hand tobacco smoke exposure: No Alcohol intake: current Substance use: never Gender identity (if verbalized by the patient): Female Spiritual care concerns: No Exam Day of Procedure 01/21/22 06:45
--- NOTE | 2022-01-21 06:54 | WPDHPUPDATE1 ---
History and Physical Update Update Date/Time: 01/21/22 06:54 History and Physical has been reviewed, including an updated exam of the patient. There are NO changes in the patient's condition. Risks, benefits, and alternatives have been discussed and questions answered. Patient agrees to proceed with procedure.
--- NOTE | 2022-01-21 06:54 | PM.IMHP ---
H&P: HPI History of Present Illness Date/Time: 01/21/22 06:54 Chief Complaint: Intrauterine at 39 weeks admitted for Narrative: 36-year-old 2 para 1 at 39 and 2/7 weeks admitted for repeat section. is complicated by gestational diabetes insulin requiring. NSTs have been reactive and sugars have been under good control. labs a positive, rubella immune, RPR negative, hepatitis-B surface antigen negative, group B strep negative, HIV negative. Review of Systems Review of Systems: Good movement [facility] Past Medical History Medical History (Updated 01/21/22 @ 06:57 by Marlyn Montoya MD) Fracture of left leg Graves disease Hypothyroidism Surgical History Surgical History (Updated 01/21/22 @ 06:57 by Marlyn Montoya MD) Previous section Family History Family History Father Diabetes mellitus Hypertension Grandparent Family history of cardiovascular disease Cancer Cerebrovascular accident Social History Social History (Updated 03/07/21 @ 10:48 by Brooklyn Guillory NP) Smoking status: Never smoker Second hand tobacco smoke exposure: No Alcohol intake: current Substance use: never Gender identity (if verbalized by the patient): Female Spiritual care concerns: No Meds Home Medications and Allergies Home Medications Medication Instructions Recorded Confirmed Type ergocalciferol (vitamin D2) 1,250 1,250 mcg PO WEEKLY 01/27/20 01/21/22 History mcg (50,000 unit) capsule (Vitamin D2) levothyroxine 25 mcg tablet 100 mcg PO DAILY 01/27/20 01/21/22 History (Synthroid) vit no.95-ferrous 1 tablet PO DAILY 01/27/20 01/21/22 History fumarate 28 mg-folic acid 800 mcg tablet () insulin NPH isoph U-100 human 100 6 unit subcut HS 12/29/21 01/21/22 History unit/mL (3 mL) subcutaneous pen (Humulin N NPH U-100 Insulin KwikPen) Allergies Allergy/AdvReac Type Severity Reaction Status Date / Time No Known Allergies Allergy Verified 01/27/20 13:35 Vital Signs Vital Signs - 24 hr 01/21/22 06:01 01/21/22 05:46 01/21/22 06:00 Temperature 97.7 F Pulse Rate 76 Blood Pressure 115/76 Oxygen Delivery Room Air Exam Const: General: healthy appearing and alert Orientation/consciousness: patient oriented x3 GI: GI Palp: Yes Soft to palpation, No Tenderness to palpation present (GI) and Yes Other GI palpation findings present ( fundal height 39cm; heart tones 140s) : External Female Exam: normal external appearance Speculum Exam - Vagina: normal appearance of the vagina and normal vaginal discharge Speculum Exam - Cervix: normal appearance of the cervix Bimanual exam- vagina & uterus: consistency normal and enlarged ( ) Bimanual Exam- Adnexa, other: normal adnexae and No adnexal tenderness Neuro: General: patient oriented x3 Assessment and Plan Assessment and plan (1) 39 weeks gestation of : Code(s): Z3A.39 - 39 weeks gestation of Status: Acute (2) Previous section: Code(s): Z98.891 - History of uterine scar from previous surgery Status: Acute Assessment and Plan: plan to proceed with repeat section (3) GDM, class A2: Code(s): O24.419 - Gestational diabetes mellitus in , unspecified control Status: Acute
[2022-01-21] MEDS: ceFAZolin 2 GM/D5W 50 ML 2 GM/50 ML BAG IVPB (06:57)
--- NOTE | 2022-01-21 07:44 | P.OP_ITS ---
Procedure Note - Detailed Date of Procedure 01/21/22 Pre-op Diagnosis Intrauterine at 39 weeks Previous section Gestational diabetes insulin requiring Post-op Diagnosis Same Procedure Performed Repeat low transverse section Surgeon Marlyn Montoya MD Anesthesia Spinal Findings Female 7lb 9oz with Apgars of 8 [id number] and 9 [id number]. Normal- appearing tubes, ovaries, and uterus. Description of Procedure The patient was taken to the operating room and placed under anesthesia in the dorsal supine position with a leftward tilt. The patient was prepped and draped in the usual sterile fashion. Anesthesia was deemed adequate and Pfannenstiel skin incision was made with a scalpel and carried down to the underlying layer of fascia which was nicked in the midline. The incision was extended laterally using Lala scissors. [facility] was used to tent the fascia which was then dissected off using sharp and blunt dissection. The peritoneum was tented and entered with Metzenbaum. The incision was extended with blunt traction. The bladder blade is placed. The vesicouterine peritoneum was tented, entered with Metzenbaum, and extended laterally. The bladder flap was created digitally. The bladder blade is replaced. The lower uterine segment was incised in a transverse fashion with the scalpel. Membranes are ruptured clear fluid noted. The incision was extended laterally using blunt traction. The infant's head was brought into the incision and while the hotel assistant general manager applied fundal pressure the vertex was delivered. The remainder of the was fully delivered. The cord was clamped and cut the infant handed to the awaiting OB nurse. The placenta was removed using manual traction after cord gases and cord blood were drawn. The uterus is cleared of all clots and debris and exteriorized. The uterine incision was closed using 0 Monocryl in a running locked fashion, same suture was used to imbricate and obtain hemostasis. The cul-de-sac is irrigated and the uterus returned to the abdomen. The gutters were irrigated and the incision again inspected. One additional alonxd-xb-tobic suture was required at the left angle. Good hemostasis is noted. The fascia was closed using 0 Vicryl in a running fashion. Subcutaneous tissues were irrigated and made hemostatic using Bovie cautery. Skin incision was closed using 4-0 Vicryl in a subcuticular fashion. Dermaflex was placed over the incision. Sponge, needle, and instrument counts are correct per the OR staff. Estimated Blood Loss 564 Drains Yes (Hodge catheter) Packing No Pathology None sent Complications No immediate complications Condition Stable Disposition Floor
--- NOTE | 2022-01-21 07:47 | PM.OBDSVD ---
DS: Admitting Diagnosis Discharge Date 01/23/22 Admitting Diagnosis Intrauterine at 39 and 2 7th weeks Previous section Gestational diabetes insulin requiring DS: Discharge Diagnosis Discharge Diagnosis (1) Previous section: Code(s): Z98.891 - History of uterine scar from previous surgery Status: Acute (2) delivery delivered: Code(s): O82 - Encounter for delivery without indication Status: Acute (3) 39 weeks gestation of : Code(s): Z3A.39 - 39 weeks gestation of Status: Acute (4) GDM, class A2: Code(s): O24.419 - Gestational diabetes mellitus in , unspecified control Status: Acute OB - DS: Summary OB Procedures : NST and Ultrasound OB Procedures Intrapartum: low cervical, transverse OB Procedures: : None Peripartum Data Infant Delivery Method: Section Procedures: Procedures Operation Date: 01/21/22 07:30 <No data on this case meets the specified criteria> Status at Discharge Functional status at discharge: independent ambulation Overall status at discharge: patient is progressing back to baseline Time Spent with Patient Time attestation: Total time spent providing and/or coordinating discharge services: DS: Data Data Completed and Pending Labs on day of discharge: Labs from last 24 hours 01/21/22 05:28 POC Capillary Glucose 90 Discharge Plan Discharge Attending physician on discharge: Marlyn Montoya Discharging Clinician: Marlyn Montoya Anticipated Discharge Date/Time: 01/23/22 13:00 Patient Disposition: Home, Self-Care Activity: may shower and pelvic rest Diet: regular Wound Care Instructions: incision open to air Discharge Instructions: Education: Mom and Baby Guide Given to: mother Follow-Up: Call your delivering provider's office for an appointment to be seen in: 1 Week Mom and baby should come to the [facility] for the follow-up appointment. Appointment Date/Time: January 25, 2022 at 11:00 am What to expect at your follow-up visit: Blood Pressure Check Physical Assessment Call [phone] if you are unable to keep your appointment time. BREAST CARE: * Wear a snug supportive bra. * For engorgement discomfort: Breast Feeding: * Apply warm moist washcloths * Express milk as needed to relieve engorgement * Wear loose clothing * For sore nipples: * Identify correct latch-on * Apply warm moist washcloths before and after nursing * Air dry nipples after nursing * May apply Lansinoh cream to nipples ABDOMINAL INCISION: (if applicable) * Allow incision to air dry * Do NOT use lotions for powders on your incision * When showering, allow soap and water to run over the incision, but do not wash incision PERINEAL CARE: * Until bleeding stops, use your delio bottle after urinating * Change your pad frequently throughout the day * You may take sitz baths several times a day (fill your bathtub with warm water and soak for 20 minutes.) Do NOT bathe in the water * No tub baths until seen by your physician - You may shower ACTIVITY: * Rest as much as possible. * Do not exercise or lift anything heavier than your baby (such as laundry or other children.) * Avoid stairs or driving as much as possible. * Do not put anything into the vagina. No douching, tampons, or sexual activity until seen by physician. NOTIFY PHYSICIAN IF YOU HAVE ANY QUESTIONS OR IF ANY OF THE FOLLOWING SYMPTOMS OCCUR: * If your episiotomy or incision becomes red, swollen, or more painful than what you have experienced in the hospital. * If your vaginal bleeding becomes foul smelling. * If your vaginal bleeding becomes more heavy than a period or if your bleeding changes from the color it is now to bright red. However, you may pass an occasional walnut-sized
[2022-01-21] MEDS: OXYTOCIN 30 UNITS/NS 500 ML 30 UNITS/500 ML BAG 125 UNITS IV CONT (08:31)
--- NOTE | 2022-01-21 09:57 | OBPPTRN ---
Patient transferred to post room #290 @ 0001 via stretcher. Support person present. Oriented to unit, room, information board, rooming in, admission packet and security measures. Patient verbalizes understanding.
[2022-01-21] MEDS: DEXTROSE 5%/0.45% SOD CHL 1,000 ML 125 ML IV CONT (13:44)
[2022-01-21] MEDS: IBUPROFEN 600 MG TABLET PO ×2 (14:28→23:24)
--- NOTE | 2022-01-21 14:44 | PC.NURSE ---
[id number] Introductions were made. Mother demonstrates she is able to independently latch with appropriate positioning/alignment. She denies any nipple discomfort and is responsively . Infant is currently meeting outcomes for weight, output, jaundice and feeding frequencies of 8-12 times in 24 hours. Mother declines any additional assistance/education at this time. Mother is encouraged to call for assistance if her doesn?t latch or there is discomfort with latching. Mother voiced understanding of information shared and mom and baby guide reviewed for additional resource information . Reported to the primary RN.
[2022-01-21] MEDS: DOCUSATE SODIUM 100 MG CAPSULE PO (17:44)
[2022-01-21] MEDS: ACETAMINOPHEN 325 MG TABLET 650 MG PO (19:30)
[2022-01-22 04:00] VITALS: BP 92/57; PULSE 67; RESP 18; TEMP 36.6
[2022-01-22] MEDS: ACETAMINOPHEN 325 MG TABLET 650 MG PO ×2 (04:01→12:38)
[2022-01-22 05:46] LABS: Basophils Percent Auto 0.3 % (0.2-1.2); Eosinophils Absolute Auto 0.1 K/mm3 (0-0.3); Eosinophils Percent Auto 1.1 % (0-4.4); Hematocrit 36.6 % (37.0-47.0); Hemoglobin 12.3 g/dL (12.0-15.0); Immature Granulocyte Absolute 0.04 K/mm3 (0.00-0.031); Immature Granulocyte Percent A 0.4 % (0-0.5); Lymphocytes Absolute Auto 1.79 K/mm3 (0.9-3.2); Lymphocytes Percent Auto 18.5 % (18.3-44.2); Mean Corpuscular HGB Conc 33.6 g/dl (32-36); Mean Corpuscular Hemoglobin 30.1 pg (26-34); Mean Corpuscular Volume 89.7 fl (80-100); Mean Platelet Volume 10.9 fl (7.4-10.4); Monocytes Absolute Auto 0.6 K/mm3 (0.1-0.6); Monocytes Percent Auto 6.3 % (2.6-8.5); Neutrophils Absolute Auto 7.1 K/mm3 (1.3-6.7); Neutrophils Percent Auto 73.4 % (45.5-73.1); Platelet Count Result 169 k/mm3 (150-375); Red Blood Count 4.08 M/mm3 (4.2-5.4); Red Cell Distribution Width 14.7 % (11.5-14.5); White Blood Count 9.7 K/mm3 (4.5-10.0)
[2022-01-22 08:00] VITALS: BP 103/68; PULSE 65; RESP 18; TEMP 36.1
[2022-01-22] MEDS: MULTIVIT/MIN/PREN/FOL AC/IRON TABLET 1 TAB PO (08:06)
[2022-01-22] MEDS: DOCUSATE SODIUM 100 MG CAPSULE PO ×2 (08:06→15:46)
[2022-01-22] MEDS: IBUPROFEN 600 MG TABLET PO ×2 (08:06→18:33)
--- NOTE | 2022-01-22 08:36 | WPDANLDPN2 ---
Anes-Prog Note L&D Date/Time: 01/22/22 08:36 Comfortable throughout: section Neuraxial method: spinal Epidural/Spinal procedure site: clean & non-tender Neuro status: Neuro function grossly intact. Cardiovascular status: normal Respiratory status: normal Airway patency: baseline Mental status: baseline Post-Op hydration status: normal Vital Signs: Last Vital Signs Temp 98 F 01/22/22 04:00 Pulse 67 01/22/22 04:00 Resp 18 01/22/22 04:00 BP 92/57 L 01/22/22 04:00 Pulse Ox 100 01/21/22 12:20 O2 Del Method Room Air 01/22/22 04:00 Pain score (VAS): 3 I/O: Intake & Output 01/21/22 01/22/22 01/22/22 23:59 07:59 15:59 Intake Total 3000 200 Output Total 2500 400 Balance 500 -200 Post-procedural complaints: pruritis mild, no treatment Patient feedback: Patient satisfied with anesthetic care.
--- NOTE | 2022-01-22 08:37 | WPDANLDNPN2 ---
Anes-Prog Note L&D-Neuraxial Date/Time: 01/22/22 08:37 Neuraxial medications: intrathecal PF morphine Opiod-related complaints: pruritis mild, no treatment Patient feedback: Patient satisfied with post-operative pain management.
--- NOTE | 2022-01-22 10:08 | PM.OBPNVD ---
OB - PN: Subj Subjective Date/time seen: 01/22/22 10:08 Narrative: POD#1 Flor reports doing well today. 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 Her pain is controlled. She is tolerating regular diet, voiding, passing gas, and ambulating without issues. She denies any issues with her incision. She is breast feeding. OB - PN: Obj Data Labs CBC & Chem 7: 01/22/22 04:00 Labs: Laboratory Results - last 24 hr 01/22/22 04:00 WBC 9.7 RBC 4.08 L Hgb 12.3 Hct 36.6 L MCV 89.7 MCH 30.1 MCHC 33.6 RDW 14.7 H Plt Count 169 MPV 10.9 H Immature Gran % (Auto) 0.4 Neut % (Auto) 73.4 H Lymph % (Auto) 18.5 [place] % (Auto) 6.3 Eos % (Auto) 1.1 Baso % (Auto) 0.3 Lymph # (Auto) 1.79 [place] # (Auto) 0.6 Eos # (Auto) 0.1 Baso # (Auto) 0.0 Abs Immat Gran (auto) 0.04 H Absolute Neuts (auto) 7.1 H Absolute Nucleated RBC 0.0 Nucleated RBC % 0.0 OB - PN A/P Assessment and Plan (1) GDM, class A2: Code(s): O24.419 - Gestational diabetes mellitus in , unspecified control Status: Acute (2) Previous section: Code(s): Z98.891 - History of uterine scar from previous surgery Status: Acute Plan day: 1 Plan: routine care Comments: - pain meds PRN, regular diet, ambulate, stay hydrated, put baby to breast q2-3h Time Spent With Patient Time: Total time spent is greater than 50% in coordination of care (as documented) at patient's floor/unit and/or counseling patient: Review of Systems Constitutional: Constitutional: Denies chills, Denies fever(s) and Denies headache(s) Eyes: Eyes: Denies change in vision ENT: Denies dizziness and Denies headache(s) Cardiovascular: Cardiovascular: Denies chest pain, Denies palpitations and Denies dyspnea Respiratory: Respiratory: Denies cough and Denies dyspnea Gastrointestinal: Gastrointestinal: Denies nausea and Denies vomiting Genitourinary: Comments: normal bleeding Neurologic: Denies dizziness and Denies headache(s) Endocrine: Endocrine: Denies palpitations Exam Const: General: cooperative, comfortable and no acute distress Orientation/consciousness: patient oriented x3 Resp: Effort & Inspection: normal respiratory effort Auscultation: clear to auscultation bilaterally Cardio: Rate: regular rate GI: Inspection: non-distended and incision (covered with clean dressing) GI Palp: Yes abdominal tenderness (appropriate) and Yes Soft to palpation Auscultation: normal bowel sounds : Other: fundus firm Skin: General skin exam: normal color Neuro: General: patient oriented x3 Extrem: General: normal to inspection Psych: Appearance: grossly normal Affect: normal affect Attitude: cooperative
[2022-01-22] MEDS: SIMETHICONE 80 MG TAB.CHEW PO ×2 (15:46→18:33)
[2022-01-22 18:35] VITALS: BP 106/67; PULSE 76; RESP 16; TEMP 36.8
[2022-01-23] MEDS: ACETAMINOPHEN 325 MG TABLET 650 MG PO (02:38)
[2022-01-23] MEDS: IBUPROFEN 600 MG TABLET PO (08:07)
[2022-01-23] MEDS: DOCUSATE SODIUM 100 MG CAPSULE PO (08:39)
[2022-01-23] MEDS: MULTIVIT/MIN/PREN/FOL AC/IRON TABLET 1 TAB PO (08:39)
[2022-01-23 08:45] VITALS: BP 100/59; PULSE 58; RESP 16; TEMP 36.6
--- NOTE | 2022-01-23 10:19 | PM.OBPNVD ---
OB - PN: Subj Subjective Date/time seen: 01/23/22 10:19 Narrative: POD#2 Flor reports doing well today. Her bleeding is light. Her pain is controlled. She is tolerating regular diet, voiding, passing gas, and ambulating without issues. She denies any issues with her incision. She is breast feeding without issue. Would like to go home today. OB - PN: Obj Data Labs CBC & Chem 7: 01/22/22 04:00 OB - PN A/P Plan day: 2 Plan: routine care and discharge home Comments: - ER return precautions - no heavy lifting; incision care discussed; take meds as prescribed Time Spent With Patient Time: Total time spent is greater than 50% in coordination of care (as documented) at patient's floor/unit and/or counseling patient: Review of Systems Constitutional: Constitutional: Denies chills, Denies fever(s) and Denies headache(s) Eyes: Eyes: Denies change in vision ENT: Denies dizziness and Denies headache(s) Cardiovascular: Cardiovascular: Denies chest pain, Denies palpitations and Denies dyspnea Respiratory: Respiratory: Denies cough and Denies dyspnea Gastrointestinal: Gastrointestinal: Denies nausea and Denies vomiting Genitourinary: Comments: normal bleeding Neurologic: Denies dizziness and Denies headache(s) Endocrine: Endocrine: Denies palpitations Exam Const: General: cooperative, comfortable and no acute distress Orientation/consciousness: patient oriented x3 Resp: Effort & Inspection: normal respiratory effort Auscultation: clear to auscultation bilaterally Cardio: Rate: regular rate GI: Inspection: non-distended and incision (covered with clean dressing) GI Palp: Yes abdominal tenderness (appropriate) and Yes Soft to palpation Auscultation: normal bowel sounds : Other: fundus firm Skin: General skin exam: normal color Neuro: General: patient oriented x3 Extrem: General: normal to inspection Psych: Appearance: grossly normal Affect: normal affect Attitude: cooperative
[2022-01-26 11:13] VITALS: BP 126/82; PULSE 51; RESP 20; TEMP 37.1; O2SAT 99
== END 2022-01-23 12:56 | disposition home or self-care (01) | DRG 788 ==
LOC: ANHLDR 07:50 → ANHOB2 01-23 10:29 → ANHLDR 01-24 11:45
PROVIDERS: Admitting Provider Obstetrics & Gynecology Gynecology; PCP Nurse Practitioner Adult Health; Visit Provider Obstetrics & Gynecology
PROC: 10D00Z1 Extraction of Products of Conception, Low, Open Approach (ICD-10-PCS; CPT 59514; principal; 2022-01-21 07:30)
DX: O34.219 Maternal care for unspecified type scar from previous cesarean delivery (principal); O99.284 Endocrine, nutritional and metabolic diseases complicating childbirth; E03.9 Hypothyroidism, unspecified; O24.424 Gestational diabetes mellitus in childbirth, insulin controlled; Z3A.39 39 weeks gestation of pregnancy; Z37.0 Single live birth
CPT/HCPCS: 36415; 82948; 85025; A9270; J0131; J0690; J2274; J2370; J2405; J2590; J7120

== ENCOUNTER 2023-04-23 10:09 | Emergency (ER) | payer OTHER, SELFPAY ==
--- NOTE | ~2023-04-23 | XR_ITS ---
EXAMINATION: XR chest 2V 04/23/2023 10:38 INDICATION: Cough for 2 weeks PROCEDURE: 2 view chest COMPARISON: No prior studies for comparison. FINDINGS: The lungs are clear. The cardiomediastinal silhouette is within normal limits. There are no pleural effusions. There is no pneumothorax suspected. IMPRESSION: 1: NO ACUTE CARDIOPULMONARY DISEASE. Reviewed, dictated and finalized at location A.
[2023-04-23 10:18] VITALS: BP 133/96; PULSE 99; RESP 16; TEMP 36.1; O2SAT 100
--- NOTE | 2023-04-23 10:38 | ED.GENADULT ---
HPI - General Adult General Chief complaint: Upper Respiratory Infection Stated complaint: COUGH Source: patient Mode of arrival: ambulatory Limitations: no limitations History of Present Illness HPI narrative: Patient presents for evaluation of cough for the last 2 weeks. Cough is nonproductive. No fever, chills, nausea, vomiting, sore throat, otalgia, shortness of breath. No recent sick contacts to her knowledge. She tried taking Mucinex DM without improvement in her symptoms thereafter. Related Data Home Medications Medication Instructions Recorded Confirmed ergocalciferol (vitamin D2) 1,250 1,250 mcg PO WEEKLY 01/27/20 04/23/23 mcg (50,000 unit) capsule (Vitamin D2) levothyroxine 88 mcg tablet 88 mcg PO DAILY 08/15/22 04/23/23 (Synthroid) Allergies Allergy/AdvReac Type Severity Reaction Status Date / Time No Known Allergies Allergy Verified 04/23/23 10:22 Review of Systems Review of Systems: CONSTITUTIONAL: Denies fever, chills, or sweats. EYES: Denies visual changes, redness, or discharge. ENT: Denies rhinorrhea, congestion, sore throat, or otalgia. CARDIOVASCULAR: Denies chest pain, palpitations, or edema. RESPIRATORY: Reports nonproductive cough. Denies dyspnea. GASTROINTESTINAL: Denies abdominal pain, nausea, vomiting, or diarrhea. GENITOURINARY: Denies dysuria or hematuria. SKIN: Denies rash or itching. MUSCULOSKELETAL: Denies back pain, joint pain, or myalgia. NEUROLOGIC: Denies headache, numbness, dizziness, or weakness. PSYCHIATRIC: Denies anxiety or depression. [facility] Past Medical History Medical History Fracture of left leg Graves disease Hypothyroidism Surgical History Surgical History Previous section Family History Family History Father Diabetes mellitus Hypertension Grandparent Family history of cardiovascular disease Cancer Cerebrovascular accident Social History Social History Smoking status: Never smoker Second hand tobacco smoke exposure: No Alcohol intake: current Alcohol use details: rarely Substance use: never Substance use type: does not use Lack of Transportation: No Lack of Food: Never True Current Housing: I Have Housing Concerned About Future Housing: No Difficulty Paying Gas/Electric Bills: No Difficulty Paying for Meds: No Currently Unemployed: No Education: Master's Degree or Higher Difficulty w/ Childcare or Family Care: No Living arrangements: with family Gender identity (if verbalized by the patient): Female Spiritual care concerns: No Exam Narrative: GENERAL: Well-appearing, well-nourished, and in no acute distress. HEAD: Normocephalic, atraumatic. EYES: PERRLA and EOMI. ENT: Nares clear, no rhinorrhea or epistaxis. Mucous membranes moist. Oropharynx without tonsillar hypertrophy exudate or other lesions. Bilateral TMs pearly solano nonbulging NECK: Supple. No adenopathy or masses. No carotid bruits or JVD CHEST: Clear to auscultation. No respiratory distress. No wheezes rales or rhonchi HEART: Regular rate and rhythm. No murmur heard. Normal peripheral pulses. ABDOMEN: Soft, nontender, nondistended, normal active bowel sounds. EXTREMITIES: Normal range of motion. No edema. SKIN: Warm, dry, no rash. NEURO: No focal deficits. Alert and oriented x3. PSYCH: Normal mood and affect. Course Course Emergency Course: This is a 38-year-old female who presented for evaluation of a cough. She declined COVID and flu swabs. Chest x-ray normal. Exam consistent with acute viral syndrome. Will discharge with Tessalon. Increase hydration. Follow up with primary provider. Go to the ER for worsening symptoms. Pt in agreement with plan
== END 2023-04-23 10:56 | disposition home or self-care (01) ==
PROVIDERS: Emergency Provider Nurse Practitioner; PCP Family Medicine
DX: B34.9 Viral infection, unspecified (principal); E05.00 Thyrotoxicosis with diffuse goiter without thyrotoxic crisis or storm; E03.9 Hypothyroidism, unspecified
CPT/HCPCS: 71046; 99213; G0463

== ENCOUNTER 2024-02-22 11:25 | Emergency (ER) | payer OTHER, SELFPAY ==
[2024-02-22 11:33] VITALS: BP 129/77; PULSE 101; RESP 18; TEMP 36.3; O2SAT 100
--- NOTE | 2024-02-22 11:59 | ED.URI ---
HPI - URI/Sore Throat General Chief Complaint: Upper Respiratory Infection Stated Complaint: Sore Throat History of Present Illness HPI Narrative: Patient is a 38-year-old female, past medical history significant for acquired hypothyroidism, presents to [facility] with her 2 week history of URI symptoms started to improve until 3 days ago when she began having right maxillary sinus pain, right unilateral sore throat pain and right ear pain. She denies associated fevers or chills. She has no chest pain, shortness of breath, no abdominal pain, no nausea vomiting or diarrhea. She denies chance of . She is taking [id number] medications without much relief. Related Data Home Medications Medication Instructions Recorded Confirmed levothyroxine 88 mcg tablet 88 mcg PO DAILY 08/15/22 02/22/24 (Synthroid) Allergies Allergy/AdvReac Type Severity Reaction Status Date / Time No Known Allergies Allergy Verified 02/22/24 11:36 Review of Systems ENT: Comments: refer to [facility] Past Medical History Medical History Fracture of left leg Graves disease Hypothyroidism Surgical History Surgical History Previous section Family History Family History Father Diabetes mellitus Hypertension Grandparent Family history of cardiovascular disease Cancer Cerebrovascular accident Social History Social History Smoking status: Never smoker Second hand tobacco smoke exposure: No Alcohol intake: current Alcohol use details: rarely Substance use: never Substance use type: does not use Lack of Transportation: No Lack of Food: Never True Current Housing: I Have Housing Concerned About Future Housing: No Difficulty Paying Gas/Electric Bills: No Difficulty Paying for Meds: No Currently Unemployed: No Education: Master's Degree or Higher Difficulty w/ Childcare or Family Care: No Living arrangements: with family Gender identity (if verbalized by the patient): Female Spiritual care concerns: No Exam Const: General: healthy appearing, no acute distress and alert Nutritional Appearance: well nourished Orientation/consciousness: patient oriented x3 Limitations: no limitations HENMT: Head: normal to inspection Ears: external ears normal and TM abnormal ( TMs retracted bilaterally, remaining translucent) Throat: uvula midline Other: posterior pharyngeal erythema is noted, tonsils are symmetrical bilaterally however the right posterior pharynx is more erythematous with cobblestone appearance, the right maxillary sinus is also tender to palpation Eyes: Conjunctivae: conjunctivae normal Pupils: Equal, round and reactive pupils present EOM: EOMs intact bilaterally Neck: Neck: normal visual inspection, no lymphadenopathy and no meningeal signs Resp: Effort & Inspection: normal respiratory effort Auscultation: clear to auscultation bilaterally Cardio: Rate: regular rate Rhythm: regular rhythm Skin: General skin exam: normal color Rashes: no rashes Neuro: General: patient oriented x3, moves all extremities, no meningeal signs, no focal motor deficits and CN's II-XI intact bilaterally Speech: normal speech Gait exam (Neuro): Normal gait present Course Course Emergency Course: Oral antibiotics, short steroid course, follow-up with PCP in 3 days if symptoms not resolving, ER if condition worsens Level of Care: Express Care Visit ([id number]) Vital Signs Vital signs: Vital Signs Temperature 36.3 C L 02/22/24 11:33 Pulse Rate 101 H 02/22/24 11:33 Respiratory Rate 18 02/22/24 11:33 Blood Pressure 129/77 02/22/24 11:33 Pulse Oximetry 100 02/22/24 11:33 Oxygen Delivery Room Air 02/22/24 11:33 Temper
== END 2024-02-22 12:12 | disposition home or self-care (01) ==
PROVIDERS: Emergency Provider Nurse Practitioner Family; PCP Family Medicine
DX: J01.00 Acute maxillary sinusitis, unspecified (principal); H65.01 Acute serous otitis media, right ear; E05.00 Thyrotoxicosis with diffuse goiter without thyrotoxic crisis or storm; E03.9 Hypothyroidism, unspecified
CPT/HCPCS: 99213; G0463

== ENCOUNTER 2024-07-18 08:57 | Outpatient (CLI) | payer OTHER, SELFPAY ==
--- NOTE | ~2024-07-18 | MMUS_ITS ---
EXAMINATION: MM diagnostic terrell BI w jeyson, US breast LT limited HISTORY: Left breast lumps TECHNIQUE: 3-D tomosynthesis images of the breasts were performed and synthetic 2-D images were gener ated. CAD analysis was submitted and interpreted. High resolution limited left breast ultrasound was performed. COMPARISON: None BREAST PARENCHYMAL COMPOSITION:Dense: The breasts are heterogeneously dense, which may obscure small masses. FINDINGS: MAMMOGRAPHIC FINDINGS: Parenchymal pattern of the breasts is unremarkable. No suspicious mass lesion or distortion seen. No suspicious microcalcification. ULTRASOUND: No solid or cystic lesion seen in the region scanned. No sonographic abnormality seen at the region s canned. IMPRESSION: No evidence for malignancy. No mammographic or sonographic correlate seen for the areas of palpable concern in the left breast at the 12:00 and 2:00 positions. BI-RADS Category 1: Negative Reviewed, dictated and finalized at location M. [facility] IMPRESSION: No evidence for malignancy. No mammographic or sonographic correlate seen for the areas of palpable concern in the left breast at the 12:00 and 2:00 position s. BI-RADS Category 1: Negative
== END 2024-07-18 08:58 | disposition home or self-care (01) ==
LOC: MICIMG 08:58
PROVIDERS: PCP Family Medicine; Visit Provider Advanced Practice Midwife
DX: N63.20 Unspecified lump in the left breast, unspecified quadrant (principal)
CPT/HCPCS: 76642; 77062; 77066; G0279

== ENCOUNTER 2024-09-19 06:36 | Outpatient (CLI) | payer OTHER, SELFPAY ==
--- NOTE | ~2024-09-19 | MR_ITS ---
MR breast BI wo/w con 09/19/2024 08:01 WARP HAND INDICATION: Heterogeneous density of the breasts. Left breast mass. TECHNIQUE: MRI of the breasts perform using standard protocol pre-and post IV contrast with the follo wing sequences: Axial T2 STIR, axial T1, axial vibrant T1 with fat suppression precontrast and multip hasic postcontrast. 15 cc MultiHance administered intravenously. COMPARISON: Diagnostic mammogram and left breast ultrasound dated 07/18/2024 FINDINGS: The breasts are heterogeneously dense. Right breast: There are no abnormalities on the precontrast sequences. There is minimal background pa renchymal enhancement. No enhancing lesions following contrast administration. There is nonmasslike enhancement in the upper outer quadrant of the right breast at 12:00, middle third, area measuring 10 x 3 x 4 mm with rapid persistent enhancement. No evidence of signal abnormalities in the axillary or internal mammary node distributions. LEFT BREAST: No signal abnormalities on precontrast sequences. There is minimal background parenchym al enhancement. No enhancing lesions following contrast administration. No areas of enhancement me eting threshold criteria on CAD analysis. No evidence of signal abnormalities in the axillary or in ternal mammary node distributions. IMPRESSION: 1: Right breast: Nonmasslike enhancement in the upper outer quadrant of the right breast at 12:00, m iddle third measuring 10 x 3 x 4 mm, nonspecific. Recommend follow-up right breast ultrasound. 2: Left breast: Negative. No evidence of malignancy. BI-RADS category 1. Recommend annual mammogr aphy follow-up. BI-RADS CATEGORY 0 - INCOMPLETE STUDY, NEED ADDITIONAL IMAGING EVALUATION. Reviewed, dictated and finalized at location B. HAND IMPRESSION: 1: Right breast: Nonmasslike enhancement in the upper outer quadrant of the ri ght breast at 12:00, middle third measuring 10 x 3 x 4 mm, nonspecific. Recomme nd follow-up right breast ultrasound. 2: Left breast: Negative. No evidence of malignancy. BI-RADS category 1. Re commend annual mammography follow-up. BI-RADS CATEGORY 0 - INCOMPLETE STUDY, NEED ADDITIONAL IMAGING EVALUATION.
--- OUTSIDE RECORDS SUMMARY | 2024-09-19 06:40 | XMS_ITS | Encounter Summary ---
Author Organization [facility] Address [address] [place] [address] Phone Care Team Providers Care Jewelry Dipper Name Role Phone Provider, None Unavailable Unavailable Alla Quinn APRN Primary Care Provider [phone] Encounter Details Date Type Department Care Team (Latest Contact Info) Description 09/14/2023 Transcribe Orders [facility] [address] [place] [address] Ana Rascon APRN, ARM MAKER [address] [place] [address] Immunity status testing (Primary Dx) Social History Tobacco Use Types Packs/Day Years Used Date Smoking Tobacco: Never Assessed Comments Unknown Sex and Gender Information Value Date Recorded Sex Assigned at Not on file 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 Gender Identity Not on file Sexual Orientation Not on file documented as of this encounter Plan of Treatment Scheduled Orders Name Type Priority Associated Diagnoses Orde r Schedule HEPATITIS B SURFACE ANTIBODY (HBSAB) Lab Routine Immunity status testing Expected: 09/14/2023, Expires: 10/13/2023 documented as of this encounter Visit Diagnoses Diagnosis Immunity status testing- Primary Antibody response examination documented in this encounter Care Teams Jewelry Dipper Relationship Specialty Start Date End Date Alla Quinn APRN [place] PCP - General Advanced Practice Nurse 12/18/20 Provider, None [place] 05/27/20 documented as of this encounter
--- OUTSIDE RECORDS SUMMARY | 2024-09-19 06:40 | XMS_ITS | Clinical Summary ---
Author Organization [facility] Address [address] [place] [address] Phone Care Team Providers Care Machine Setter Supervisor Name Role Phone Provider, None Unavailable Unavailable Alla Quinn APRN Primary Care Provider [phone]- [phone] Encounters Date Type Department Care Team Description 07/09/2024 Lab Requisition [facility] [address] [place] [id number] Ana Rascon, LEARNING SPECIALIST, OUTSIDE BARREL LATHE OPERATOR 07/09/2024 Travel from Last 3 Months Immunizations Immunization Administration Dates Next Due Covid-19, Mrna, Lnp-s, Pf, 3 0 Mcg/0.3 Ml Dose (Pfizer) 08/07/2020,07/17/2020 Influenza Vaccine, Quadrivalent, PF 05/03/2023,1 ,04/29/2020 Social History Tobacco Use Types Packs/Day Years Used Date Smoking Tobacco: Never Assessed Comments Unknown Sex and Gender Information Value Date Recorded Sex Assigned at Not on file Legal Sex Female 2:48 PM NIGHT NURSE Gender Identity Not on file Sexual Orientation Not on file Plan of Treatment Health Maintenance Due Date Last Done Comments Hepatitis C Virus (HCV) Screening 1987 TdaP Immunization 1987 Hepatitis B Immunization (1 of 3 - 19+ 3-dose series) 2006 Pap Smear 2008 Cervical Cancer Screening (CCS) 2017 HPV/Cotest 2017 Influenza Immunization (#1) 2024 10/0 10/2022, 05/03/2021, 04/29/2020 SARS-COV-2 Immunization ( season) 2024 07/17/2021, 08/07/2020, 07/17/2020 Respiratory Syncytial Virus (RSV) Immunization (Adult) (1 - 1-dose 75+ series) 2062 Meningococcal Immunization (ACWY) Aged Out No longer eligible b ased on patient's age to complete this topic Pneumococcal Immunization Combined Aged Out No longer eligible b ased on patient's age to complete this topic Rotavirus Immunization Aged Out No lo nger eligible based on patient's age to complete this topic Procedures Procedure Name Priority Date/Time Associated Diagnosis Comments QUANTIFERON-TB GOLD PLUS Routine 07/09/2024 9:30 AM NIGHT NURSE from Last 3 Months Results * QUANTIFERON-TB GOLD PLUS (07/09/2024 9:30 AM NIGHT NURSE) NIL CONTROL 0.04 <8.01 IU/mL 07/11/2024 12:05 PM NIGHT NURSE [facility] TB ANTIGEN 1 0.00 <0.35 IU/mL 07/11/2024 12:05 PM NIGHT NURSE [facility] TB ANTIGEN 2 0.00 <0.35 IU/mL 07/11/2024 12:05 PM NIGHT NURSE [facility] MITOGEN CONTROL 9.96 >0.49 IU/mL 07/11/20 24 12:05 PM NIGHT NURSE [facility] INTEPRETATION TB NEGATIVE NEGATIVE, NEGATIVE (TB antigen response less than 25% of internal negative control value) 07/11/2024 12:05 PM NIGHT NURSE [facility] Comment:No immune response t o Mycobacterium tuberculosis antigens was noted. M. tuberculosis infection unlikely. Blood No Phlebotomy Charged / Unknown 07/09/2024 9:30 AM NIGHT NURSE 07/09/2024 3:40 PM NIGHT NURSE Narrative [facility] - 07/11/2024 12:05 PM NIGHT NURSE A POSITIVE QUANTIFERON-TB GOLD PLUS RESULT SHOULD NOT BE THE SOLE OR DEFINITIVE BASIS FOR DETERMINING INFECTION WITH M.TUBERCULOSIS. Diagnosing or excluding tuberculosis disease, and assessing the probability of LTBI, requires a combination of epidemiological, historical, medical and diagnostic findings (e.g., acid fast bacilli (AFB) smear and culture, chest xray) that should be taken into account when interpreting QFT-Plus results. Furthermore, the magnitude of the measured gamma interferon level cannot be correlated to stage or degree of infection, level of immune responsiveness, or likelihood for progression to active disease. The Nil control adjusts for background (e.g., elevated levels of circulating gamma interferon or presence of heterophile antibodies). The Mitogen control serves as an internal positive control and verifies each specimen tested can produce a gamma interferon response. Low mitogen may occur with insufficient lymphocytes, reduced lymphocyte activity due to improper specimen handling, filling/mixing of the mitogen tube, or inability of the patient's lymphocytes to generate gamma interferon. Infection with other Mycobacteria, including M. kansasii, M. szulgai, and M. marinum, may cause false positive results. A negative QuantiFERON-TB Gold Plus result does not preclude the possibility of M. tuberculosis infection or tuberculosis disease: false negative results can be due to incorrect blood sample collection/ improper handling of the specimen, stage of infection (e.g., specimen obtained prior to the development of cellular immune response), co-morbid conditions which affect immune function, or other individual immunological factors. The minimum number of lymphocytes required for a reliable test has not been established and may also be variable. Diagnostic testing for Mycobacterium tuberculosis using Interferon Gamma Release Assays should follow applicable published guidelines, including when testing in populations such as children, women, and HIV-infected or otherwise immunocompromised individuals. https://www.cdc.gov/tb/publications/guidelines/testing.htm us Ana Rascon APRN, OUTSIDE BARREL LATHE OPERATOR IMMUNOLOGY ORDERABL ES Final Result [facility] [address] [place] [address], [place] from Last 3 Months Care Teams Machine Setter Supervisor Relationship Specialty Start Date End Date Alla Quinn APRN [place] PCP - General Advanced Practice Nurse 12/18/20 Provider, None [place] 05/27/20
--- OUTSIDE RECORDS SUMMARY | 2024-09-19 06:40 | XMS_ITS | Encounter Summary ---
Author Organization [facility] Address [address] [place] [address] Phone Care Team Providers Care Customer Consultant Name Role Phone Provider, None Unavailable Unavailable Alla Quinn APRN Primary Care Provider [phone]- [phone] Encounter Details Date Type Department Care Team (Late st Contact Info) Description 07/09/2024 [facility] [address] [place] [id number] Ana Rascon, CARD PAINTER, SUPERVISOR HARD CANDY [address] [place] [address] Social History Tobacco Use Types Packs/Day Years Used Date Smoking Tobacco: Never Assessed Comments Unknown Sex and Gender Information Value Date Recorded Sex Assigned at Not on file Legal Sex Female 2:48 PM PORTAL DEVELOPER Gender Identity Not on file Sexual Orientation Not on file documented as of this encounter Plan of Treatment Not on file documented as of this encounter Procedures Procedure Name Priority Date/Time Associated Diagnosis Comments QUANTIFERON-TB GOLD PLUS Routine 07/09/2024 9:30 AM PORTAL DEVELOPER documented in this encounter Results * QUANTIFERON-TB GOLD PLUS (07/09/2024 9:30 AM PORTAL DEVELOPER) NIL CONTROL 0.04 <8.01 IU/mL 07/11/2024 12:05 PM PORTAL DEVELOPER [facility] TB ANTIGEN 1 0.00 <0.35 IU/mL 07/11/2024 12:05 PM [facility] TB ANTIGEN 2 0.00 <0.35 IU/mL 07/11/2024 12:05 PM [facility] MITOGEN CONTROL 9.96 >0.49 IU/mL 07/11/20 24 12:05 PM [facility] INTEPRETATION TB NEGATIVE NEGATIVE, NEGATIVE (TB antigen response less than 25% of internal negative control value) 07/11/2024 12:05 PM [facility] Comment:No immune response t o Mycobacterium tuberculosis antigens was noted. M. tuberculosis infection unlikely. Blood No Phlebotomy Charged / Unknown 07/09/2024 9:30 AM PORTAL DEVELOPER 07/09/2024 3:40 PM [facility] - 07/11/2024 12:05 PM [facility] A POSITIVE QUANTIFERON-TB GOLD PLUS RESULT SHOULD [...] immunocompromised individuals. https://www.cdc.gov/tb/publications/guidelines/testing.htm us Ana Rascon APRN, CNP IMMUNOLOGY ORDERABL ES Final Result [facility] [address] [place] [address], [place] documented in this encounter Visit Diagnoses Not on filedocumented in this encounter Care Teams Customer Consultant Relationship Specialty Start Date End Date Alla Quinn APRN [place] PCP - General Advanced Practice Nurse 12/18/20 Provider, None [place] 05/27/20 documented as of this encounter
== END 2024-09-19 06:37 | disposition home or self-care (01) ==
LOC: ANHIMG 06:38
PROVIDERS: PCP Family Medicine; Visit Provider Surgery
DX: R92.333 Mammographic heterogeneous density, bilateral breasts (principal); N63.21 Unspecified lump in the left breast, upper outer quadrant; R92.8 Other abnormal and inconclusive findings on diagnostic imaging of breast
CPT/HCPCS: 77049; A9577; C8908

== ENCOUNTER 2024-10-07 10:47 | Outpatient (CLI) | payer OTHER, SELFPAY ==
--- NOTE | ~2024-10-07 | US_ITS ---
EXAMINATION TYPE: US breast RT limited COMPARISON: MRI dated 09/19/2024 REASON FOR STUDY: R92.333 - Mammographic heterogeneous density, bilateral b... TECHNIQUE: Targeted sonographic evaluation of the right breast was performed. INTERPRETATION: Sonographic imaging performed at the 9:00-12:00 positions of the right breast. No sonographic abnorma lity seen. IMPRESSION: No sonographic correlate seen for the MR findings. In my opinion the MR findings are probably benign, and therefore a six-month follow-up breast MRI advised to reassess. BI-RADS CATEGORY: BI-RADS 3: Probably benign. Six-month follow-up breast MRI recommended. Reviewed, dictated and finalized at location M. IMPRESSION: No sonographic correlate seen for the MR findings. In my opinion the MR finding s are probably benign, and therefore a six-month follow-up breast MRI advised t o reassess. BI-RADS CATEGORY: BI-RADS 3: Probably benign. Six-month follow-up breast MRI recommended.
--- OUTSIDE RECORDS SUMMARY | 2024-10-07 12:58 | XMS_ITS | Encounter Summary ---
Author Organization [facility] Address [address] [place] [address] Phone Care Team Providers Care Platform Mill Supervisor Name Role Phone Provider, None Unavailable Unavailable Alla Quinn APRN Primary Care Provider [phone]- [phone] Encounter Details Date Type Department Care Team (Late st Contact Info) Description 07/09/2024 Lab [facility]quisition [facility] [address] [place] [phone] Ana Rascon, PHOSPHORIC ACID OPERATOR, PATIENT CENTERED CARE SPECIALIST [address] [place] [address] Social History Tobacco Use Types Packs/Day Years Used Date Smoking Tobacco: Never Assessed Comments Unknown Sex and Gender Information Value Date Recorded Sex Assigned at Not on file Legal Sex Female 2:48 PM WELT SOLE LAYER Gender Identity Not on file Sexual Orientation Not on file documented as of this encounter Plan of Treatment Not on file documented as of this encounter Procedures Procedure Name Priority Date/Time Associated Diagnosis Comments QUANTIFERON-TB GOLD PLUS Routine 07/09/2024 9:30 AM WELT SOLE LAYER documented in this encounter Results * QUANTIFERON-TB GOLD PLUS (07/09/2024 9:30 AM WELT SOLE LAYER) NIL CONTROL 0.04 <8.01 IU/mL 07/11/2024 12:05 PM WELT SOLE LAYER [facility] TB ANTIGEN 1 0.00 <0.35 IU/mL 07/11/2024 12:05 PM [facility] TB ANTIGEN 2 0.00 <0.35 IU/mL 07/11/2024 12:05 PM [facility] MITOGEN CONTROL 9.96 >0.49 IU/mL 07/11/20 24 12:05 PM [facility] INTEPRETATION TB NEGATIVE NEGATIVE, NEGATIVE (TB antigen response less than 25% of internal negative control value) 07/11/2024 12:05 PM [facility] Comment:No immune response t o Mycobacterium tuberculosis antigens was noted. M. tuberculosis infection unlikely. Blood No Phlebotomy Charged / Unknown 07/09/2024 9:30 AM WELT SOLE LAYER 07/09/2024 3:40 PM [facility] - 07/11/2024 12:05 PM [facility] A POSITIVE QUANTIFERON-TB GOLD PLUS RESULT SHOULD [...] APRN, CNP IMMUNOLOGY ORDERABL ES Final Result [facility] [address] [place] [address], [place] documented in this encounter Visit Diagnoses Not on filedocumented in this encounter Care Teams Platform Mill Supervisor Relationship Specialty Start Date End Date Alla Quinn APRN [place] PCP - General Advanced Practice Nurse 12/18/20 Provider, None [place] 05/27/20 documented as of this encounter
--- OUTSIDE RECORDS SUMMARY | 2024-10-07 12:58 | XMS_ITS | Encounter Summary ---
Author Organization [facility] Address [address] [place] [address] Phone Care Team Providers Care Automotive Professional Name Role Phone Provider, None Unavailable Unavailable Alla Quinn APRN Primary Care Provider [phone]- [phone] Encounter Details Date Type Department Care Team (Latest Contact Info) Description 09/14/2023 Transcribe Orders [facility] [address] [place] [address] Ana Rascon APRN, CLERICAL WAREHOUSE WORKER [address] [place] [address] Immunity status testing (Primary Dx) Social History Tobacco Use Types Packs/Day Years Used Date Smoking Tobacco: Never Assessed Comments Unknown Sex and Gender Information Value Date Recorded Sex Assigned at Not on file Legal Sex Female 2:48 PM HAND DRAWER IN HELPER Gender Identity Not on file Sexual Orientation Not on file documented as of this encounter Plan of Treatment Scheduled Orders Name Type Priority Associated Diagnoses Orde r Schedule HEPATITIS B SURFACE ANTIBODY (HBSAB) Lab Routine Immunity status testing Expected: 09/14/2023, Expires: 10/13/2023 documented as of this encounter Visit Diagnoses Diagnosis Immunity status testing- Primary Antibody response examination documented in this encounter Care Teams Automotive Professional Relationship Specialty Start Date End Date Alla Quinn APRN [place] PCP - General Advanced Practice Nurse 12/18/20 Provider, None [place] 05/27/20 documented as of this encounter
--- OUTSIDE RECORDS SUMMARY | 2024-10-07 12:58 | XMS_ITS | Clinical Summary ---
Author Organization [facility] Address [address] [place] [address] Phone Care Team Providers Care Physician Office Secretary Name Role Phone Provider, None Unavailable Unavailable Alla Quinn APRN Primary Care Provider +1- [phone] Encounters Date Type Department Care Team Description 07/09/2024 Lab Requisition [facility] [address] [place] [phone] Ana Rascon, DIVISION TRAFFIC SUPERINTENDENT, STONER OUT 07/09/2024 Travel from Last 3 Months Immunizations Immunization Administration Dates Next Due Covid-19, Mrna, Lnp-s, Pf, 3 0 Mcg/0.3 Ml Dose (Pfizer) 08/07/2020,07/17/2020 Influenza Vaccine, Quadrivalent, PF 05/03/2023,1 ,04/29/2020 Social History Tobacco Use Types Packs/Day Years Used Date Smoking Tobacco: Never Assessed Comments Unknown Sex and Gender Information Value Date Recorded Sex Assigned at Not on file Legal Sex Female 2:48 PM POULTRY GRADER Gender Identity Not on file Sexual Orientation [...] QUANTIFERON-TB GOLD PLUS Routine 07/09/2024 9:30 AM POULTRY GRADER from Last 3 Months Results * QUANTIFERON-TB GOLD PLUS (07/09/2024 9:30 AM POULTRY GRADER) NIL CONTROL 0.04 <8.01 IU/mL 07/11/2024 12:05 PM POULTRY GRADER [facility] TB ANTIGEN 1 0.00 <0.35 IU/mL 07/11/2024 12:05 PM POULTRY GRADER [facility] TB ANTIGEN 2 0.00 <0.35 IU/mL 07/11/2024 12:05 PM POULTRY GRADER [facility] MITOGEN CONTROL 9.96 >0.49 IU/mL 07/11/20 24 12:05 PM POULTRY GRADER [facility] INTEPRETATION TB NEGATIVE NEGATIVE, NEGATIVE (TB antigen response less than 25% of internal negative control value) 07/11/2024 12:05 PM POULTRY GRADER [facility] Comment:No immune response t o Mycobacterium tuberculosis antigens was noted. M. tuberculosis infection unlikely. Blood No Phlebotomy Charged / Unknown 07/09/2024 9:30 AM POULTRY GRADER 07/09/2024 3:40 PM POULTRY GRADER Narrative [facility] - 07/11/2024 12:05 PM POULTRY GRADER A POSITIVE QUANTIFERON-TB GOLD PLUS RESULT SHOULD [...] immunocompromised individuals. https://www.cdc.gov/tb/publications/guidelines/testing.htm us Ana Rascon APRN, STONER OUT IMMUNOLOGY ORDERABL ES Final Result [facility] [address] [place] [address], [place] from Last 3 Months Care Teams Physician Office Secretary Relationship Specialty Start Date End Date Alla Quinn APRN [place] PCP - General Advanced Practice Nurse 12/18/20 Provider, None [place] 05/27/20
== END 2024-10-07 10:48 | disposition home or self-care (01) ==
LOC: ANHIMG 10:51
PROVIDERS: PCP Family Medicine; Visit Provider Physician Assistant Surgical
DX: R92.333 Mammographic heterogeneous density, bilateral breasts (principal); R92.8 Other abnormal and inconclusive findings on diagnostic imaging of breast
CPT/HCPCS: 76642

== ENCOUNTER 2025-05-23 09:36 | Outpatient (CLI) | payer OTHER, SELFPAY ==
--- NOTE | ~2025-05-23 | MR_ITS ---
MR breast BI wo/w con INDICATION:40 year old female presents for short-term follow-up of a probably benign nonmass enhancement at 12:00 location in the right breast seen on prior breast MRI completed on 09/19/2024. This finding has no sonographic correlate. TECHNIQUE: MRI of the breasts perform using standard protocol pre-and post IV contrast with the following sequences: Axial T2 STIR, axial T1, axial vibrant T1 with fat suppression precontrast and multiphasic postcontrast. 16 cc MultiHance administered intravenously. COMPARISON: Mammogram and ultrasound dated 07/18/2024 and 10/07/2024. FINDINGS: There is Heterogeneous fibroglandular tissue that demonstrates Minimal and is Symmetric. Right breast: Previously reported nonmass enhancement at 12:00 location has resolved in the interval and not seen on this current examination. There are no abnormalities on the precontrast sequences. There is minimal background parenchymal enhancement. No enhancing lesions following contrast administ ration. No areas of enhancement meeting threshold criteria on CAD analysis. Nipple areolar complex is normal in appearance. No evidence of signal abnormalities in the axillary or internal mammary node distributions. LEFT BREAST: No signal abnormalities on precontrast sequences. There is minimal background parenchymal enhancement. No enhancing lesions following contrast administration. No areas of enhancement meeting threshold criteria on CAD analysis. The nipple areolar complex is normal in appearance. No evidence of signal abnormalities in the axillary or internal mammary node distributions.] IMPRESSION: 1: Right breast: Negative. Interval resolution of previously seen probably benign nonmass enhancement. 2. Left breast: Negative. No evidence of malignancy. 3. The chest wall and axillary portion of the examination unremarkable. RECOMMENDATION: Follow-up MRI may be useful for supplementing mammographic evaluation as clinically indicated. Annual screening mammography at age 40. BI-RADS Category 1: Negative Reviewed, dictated and finalized at location B. IMPRESSION: 1: Right breast: Negative. Interval resolution of previously seen probably be nign nonmass enhancement. 2. Left breast: Negative. No evidence of malignancy. 3. The chest wall and axillary portion of the examination unremarkable. RECOMMENDATION: Follow-up MRI may be useful for supplementing mammographic evaluation as clinic ally indicated. Annual screening mammography at age 40. BI-RADS Category 1: Negative
== END 2025-05-23 09:37 | disposition home or self-care (01) ==
PROVIDERS: PCP Family Medicine; Visit Provider Surgery
DX: R92.333 Mammographic heterogeneous density, bilateral breasts (principal); R92.8 Other abnormal and inconclusive findings on diagnostic imaging of breast
CPT/HCPCS: 77049; A9577; C8908